=== PATIENT | female | born 1985 | race Caucasian/White ===

== ENCOUNTER 2016-07-14 10:40 | Emergency (ER) | payer MEDICAID ==
[2016-07-14] MEDS ORDERED: ONDANSETRON 4 MG/2 ML VIAL IVP STA (11:08)
[2016-07-14] MEDS ORDERED: SODIUM CHLORIDE 0.9% 1,000 ML IV STA (11:08)
[2016-07-14] MEDS ORDERED: ACETAMINOPHEN TAB 500 MG TAB PO STA (11:10)
[2016-07-14] MEDS ORDERED: IBUPROFEN 600 MG TAB PO STA (11:10)
--- NOTE | 2016-07-14 11:17 | ED ---
General Adult HPI - General Chief complaint: Abdominal Pain Stated complaint: vomiting.fever, back pain Time Seen by Provider: 07/14/16 11:00 Source: patient, RN notes reviewed Mode of arrival: ambulatory Limitations: no limitations - History of Present Illness Initial comments: This is a 31-year-old female who presents to the emergency department complaining of fevers and chills on Thursday night on Thursday she felt pretty good until Thursday night where that she started having fevers and chills again. Patient states she started vomiting on Thursday and continued to vomit today as well as having some diarrhea today. Patient complains of back pain bilaterally but much worse on the right side. Patient states the pain radiates down towards her right flank as well. Patient denies any vaginal bleeding or discharge. Patient denies any pain upon intercourse. Patient denies any dysuria or hematuria or urinary frequency. Patient denies any rashes. Patient denies any cough or difficulty breathing or shortness of breath. Patient denies headache patient denies any numbness weakness. Patient denies any neck stiffness. Patient denies any rashes or lesions. - Related Data Home Medications Medication Instructions Recorded Confirmed ALPRAZolam [Xanax] 0.25 mg PO Q8HR PRN 04/30/14 07/14/16 Levothyroxine Sodium [Synthroid] 75 mcg PO DAILY 04/30/14 07/14/16 Modafinil [Provigil] 400 mg PO DAILY 11/10/14 07/14/16 Loratadine-Pseudoeph 10-240 mg 1 tab PO DAILY PRN 07/14/16 07/14/16 [Claritin-D 24 Hr] Pseudoephedrine 12Hr [Sudafed 12Hr] 120 mg PO Q12H PRN 07/14/16 07/14/16 Previous Rx's Medication Instructions Recorded Ciprofloxacin HCl [Cipro] 500 mg PO Q12HR #20 tablet 07/14/16 Allergies Allergy/AdvReac Type Severity Reaction Status Date / Time Sulfa (Sulfonamide Allergy Rash/Hives Verified 07/14/16 12:27 Antibiotics) Review of Systems ROS Statement: Those systems with pertinent positive or pertinent negative responses have been documented in the HPI. ROS Other: All systems not noted in ROS Statement are negative. Past Medical History Past Medical History: Thyroid Disorder Additional Past Medical History / Comment(s): narcoplepsy History of Any Multi-Drug Resistant Organisms: None Reported Past Surgical History: Adenoidectomy, Tonsillectomy Additional Past Surgical History / Comment(s): stone removal for salivary gland Past Psychological History: Anxiety Smoking Status: Never smoker Past Alcohol Use History: Occasional Past Drug Use History: None Reported General Exam - General Exam Comments Initial Comments: GENERAL: Patient is well-developed and well-nourished. Patient is nontoxic and well- hydrated and is in moderate distress. ENT: Neck is soft and supple. No significant lymphadenopathy is noted. Oropharynx is clear. Moist mucous membranes. Neck has full range of motion without eliciting any pain. EYES: The sclera were anicteric and conjunctiva were pink and moist. Extraocular movements were intact and pupils were equal round and reactive to light. Eyelids were unremarkable. PULMONARY: Unlabored respirations. Good breath sounds bilaterally. No audible rales rhonchi or wheezing was noted. CARDIOVASCULAR: There is a regular rate and rhythm without any murmurs gallops or rubs. ABDOMEN: Mild right flank pain.. No palpable organomegaly was noted. There is no palpable pulsatile mass. SKIN: Skin is clear with no lesions or rashes and otherwise unremarkable. NEUROLOGIC: Patient is alert and oriented x3. Cranial nerves II through XII are grossly intact. Motor and sensory are also intact. Normal speech, volume and content. Symmetrical smile. MUSCULOSKELETAL: Normal extremities with adequate strength and full range of motion. No lower extremity swelling or edema. No calf tenderness. Patient has some right CVA tenderness. LYMPHATICS: No significant lymphadenopathy is noted PSYCHIATRIC: Normal psychiatric evaluation. Normal interpersonal interactions appears functionally intact in deals appropriately with others. No signs of depression. No signs of anxiety. Limitations: no limitations Course Vital Signs 07/14/16 07/14/16 07/14/16 11:02 12:11 13:16 Temperature 103.1 F H 100.5 F H Pulse Rate 129 H 115 H Respiratory 20 16 Rate Blood Pressure 140/66 135/80 O2 Sat by Pulse 100 98 Oximetry 07/14/16 13:20 Temperature Pulse Rate 107 H Respiratory 20 Rate Blood Pressure 106/57 O2 Sat by Pulse 97 Oximetry Medical Decision Making - Medical Decision Making Patient received 2 g of Rocephin emergency department after was determined that the patient had pyelonephritis. - Lab Data Result diagrams: 07/14/16 12:07 07/14/16 12:07 Lab Results 07/14/16 07/14/16 07/14/16 Range/Units 11:06 11:06 12:07 WBC (3.8-10.6) k/uL RBC (3.80-5.40) m/uL Hgb (11.4-16.0) gm/dL Hct (34.0-46.0) % MCV (80.0-100.0) fL MCH (25.0-35.0) pg MCHC (31.0-37.0) g/dL RDW (11.5-15.5) % Plt Count (150-450) k/uL Neutrophils % % Lymphocytes % % Monocytes % % Eosinophils % % Basophils % % Neutrophils # (1.3-7.7) k/uL Lymphocytes # (1.0-4.8) k/uL Monocytes # (0-1.0) k/uL Eosinophils # (0-0.7) k/uL Basophils # (0-0.2) k/uL Sodium (137-145) mmol/L Potassium (3.5-5.1) mmol/L Chloride (98-107) mmol/L Carbon Dioxide (22-30) mmol/L Anion Gap mmol/L BUN (7-17) mg/dL Creatinine (0.52-1.04) mg/dL Est GFR (MDRD) Af Amer (>60 ml/min/1.73 sqM) Est GFR (MDRD) Non-Af (>60 ml/min/1.73 sqM) Glucose (74-99) mg/dL Plasma Lactic Acid Ramos 1.0 (0.7-2.0) mmol/L Calcium (8.4-10.2) mg/dL Total Bilirubin (0.2-1.3) mg/dL AST (14-36) U/L ALT (9-52) U/L Alkaline Phosphatase (38-126) U/L Total Protein (6.3-8.2) g/dL Albumin (3.5-5.0) g/dL Amylase (30-110) U/L Lipase (23-300) U/L Urine Color Yellow Urine Appearance Cloudy H (Clear) Urine pH 8.0 (5.0-8.0) Ur Specific [place] 1.015 (1.001-1.035) Urine Protein 2+ H (Negative) Urine Glucose (UA) Negative (Negative) Urine Ketones 1+ H (Negative) Urine Blood Trace H (Negative) Urine Nitrite Negative (Negative) Urine Bilirubin Negative (Negative) Urine Urobilinogen <2.0 (<2.0) mg/dL Ur Leukocyte Esterase Large H (Negative) Urine RBC 12 H (0-5) /hpf Urine WBC >182 H (0-5) /hpf Ur Squamous Epith Cells 5 H (0-4) /hpf Urine Bacteria Moderate H (None) /hpf Urine Mucus Rare H (None) /hpf Urine HCG, Qual Not Detected (Not Detectd) 07/14/16 07/14/16 Range/Units 12:07 12:07 WBC 16.3 H (3.8-10.6) k/uL RBC 3.99 (3.80-5.40) m/uL Hgb 12.5 (11.4-16.0) gm/dL Hct 37.5 (34.0-46.0) % MCV 94.1 (80.0-100.0) fL MCH 31.3 (25.0-35.0) pg MCHC 33.2 (31.0-37.0) g/dL RDW 12.8 (11.5-15.5) % Plt Count 243 (150-450) k/uL Neutrophils % 90 % Lymphocytes % 4 % Monocytes % 4 % Eosinophils % 0 % Basophils % 0 % Neutrophils # 14.8 H (1.3-7.7) k/uL Lymphocytes # 0.7 L (1.0-4.8) k/uL Monocytes # 0.7 (0-1.0) k/uL Eosinophils # 0.0 (0-0.7) k/uL Basophils # 0.0 (0-0.2) k/uL Sodium 139 (137-145) mmol/L Potassium 3.7 (3.5-5.1) mmol/L Chloride 103 (98-107) mmol/L Carbon Dioxide 25 (22-30) mmol/L Anion Gap 11 mmol/L BUN 8 (7-17) mg/dL Creatinine 0.61 (0.52-1.04) mg/dL Est GFR (MDRD) Af Amer >60 (>60 ml/min/1.73 sqM) Est GFR (MDRD) Non-Af >60 (>60 ml/min/1.73 sqM) Glucose 105 H (74-99) mg/dL Plasma Lactic Acid Ramos (0.7-2.0) mmol/L Calcium 9.1 (8.4-10.2) mg/dL Total Bilirubin 0.6 (0.2-1.3) mg/dL AST 18 (14-36) U/L ALT 24 (9-52) U/L Alkaline Phosphatase 73 (38-126) U/L Total Protein 6.8 (6.3-8.2) g/dL Albumin 3.9 (3.5-5.0) g/dL Amylase 36 (30-110) U/L Lipase 23 (23-300) U/L Urine Color Urine Appearance (Clear) Urine pH (5.0-8.0) Ur Specific [place] (1.001-1.035) Urine Protein (Negative) Urine Glucose (UA) (Negative) Urine Ketones (Negative) Urine Blood (Negative) Urine Nitrite (Negative) Urine Bilirubin (Negative) Urine Urobilinogen (<2.0) mg/dL Ur Leukocyte Esterase (Negative) Urine RBC (0-5) /hpf Urine WBC (0-5) /hpf Ur Squamous Epith Cells (0-4) /hpf Urine Bacteria (None) /hpf Urine Mucus (None) /hpf Urine HCG, Qual (Not Detectd) Disposition Clinical Impression: Pyelonephritis Disposition: HOME SELF-CARE Condition: Good Instructions: Kidney Infection (ED) Prescriptions: Ciprofloxacin HCl [Cipro] 500 mg PO Q12HR #20 tablet Referrals: Pietro Moreno MD [Primary Care Provider] - 1-2 days Time of Disposition: 13:50
[2016-07-14] MEDS ORDERED: IBUPROFEN IV 600 MG in SODIUM CHLORIDE 0.9% 250 ML IV ONE (11:30)
[2016-07-14 12:02] LABS: Appearance,Urine Cloudy (Clear); Bacteria,Urine Moderate /hpf; Bilirubin,Urine Negative (Negative); Glucose,Urine (UA) Negative (Negative); Ketones,Urine 1+ (Negative); Leukocyte Esterase,Urine Large (Negative); Mucus,Urine Rare /hpf; Nitrite,Urine Negative (Negative); Particle Count 5735; Protein,Urine 2+ (Negative); RBC,Urine 12 /hpf (0-5); Specific Gravity,Urine 1.015 (1.001-1.035); Squamous Epithelial Cell,Urine 5 /hpf (0-4); UA Billing (MACRO vs. MICRO) MICRO; Urobilinogen,Urine <2.0 mg/dL (<2.0); WBC,Urine >182 /hpf (0-5)
[2016-07-14] MEDS ORDERED: cefTRIAXone 2,000 MG in SODIUM CHLORIDE 0.9% 100 ML IVPB STA (12:09)
[2016-07-14 12:25] LABS: Basophils % (A) 0 %; CH 31.2; CHCM 33.3; Eosinophils % (A) 0 %; HCT 37.5 % (34.0-46.0); HGB 12.5 gm/dL (11.4-16.0); Luc # (Auto) 0.14; Luc % (Auto) 1; Lymphocytes # (A) 0.7 k/uL (1.0-4.8); Lymphocytes % (A) 4 %; MCH 31.3 pg (25.0-35.0); MCHC 33.2 g/dL (31.0-37.0); MCV 94.1 fL (80.0-100.0); Mean Platelet Volume 7.6; Monocytes # (A) 0.7 k/uL (0-1.0); Monocytes % (A) 4 %; Neutrophils # (A) 14.8 k/uL (1.3-7.7); Neutrophils % (A) 90 %; RBC 3.99 m/uL (3.80-5.40); RDW 12.8 % (11.5-15.5); WBC 16.3 k/uL (3.8-10.6); WBC (Perox) 16.27
[2016-07-14 12:34] LABS: ALT 24 U/L (9-52); AST 18 U/L (14-36); Alkaline Phosphatase 73 U/L (38-126); Amylase 36 U/L (30-110); Anion Gap 11 mmol/L; Blood Urea Nitrogen 8 mg/dL (7-17); Calcium 9.1 mg/dL (8.4-10.2); Carbon Dioxide 25 mmol/L (22-30); Chloride 103 mmol/L (98-107); Glucose 105 mg/dL (74-99); Non-African American GFR(MDRD) >60 (>60 ml/min/1.73 sqM); Potassium 3.7 mmol/L (3.5-5.1); Sodium 139 mmol/L (137-145); Total Bilirubin 0.6 mg/dL (0.2-1.3); Total Protein 6.8 g/dL (6.3-8.2)
[2016-07-14 14:05] VITALS: BP 109/63; PULSE 88; RESP 18; TEMP 98.9
== END 2016-07-14 14:05 | disposition home or self-care (01) ==
LOC: EC 10:40
DX: N12 Tubulo-interstitial nephritis, not specified as acute or chronic (principal); E07.9 Disorder of thyroid, unspecified; Z88.2 Allergy status to sulfonamides; Z79.899 Other long term (current) drug therapy
CPT/HCPCS: 99284; 96365; 96368; 96375; 36415; 80053; 82150; 83605; 83690; 85025; 81001; 81025; 87040; 87491; 87591; 87086; J2405; J0696; J1741; 87077; 87186

== ENCOUNTER 2017-06-28 05:31 | Emergency (ER) | payer MEDICAID ==
[2017-06-28 05:38] VITALS: TEMP 97.3
[2017-06-28] MEDS ORDERED: MORPHINE SULFATE 4 MG/0.8 ML SYRINGE (INJ) IV STA (05:49)
[2017-06-28] MEDS ORDERED: SODIUM CHLORIDE 0.9% 2,000 ML IV STA (05:49)
[2017-06-28] MEDS ORDERED: ONDANSETRON 4 MG/2 ML VIAL IVP STA (05:49)
--- NOTE | 2017-06-28 06:01 | ED ---
General Adult HPI - General Chief complaint: Nausea/Vomiting/Diarrhea Stated complaint: fever,vomiting Time Seen by Provider: 06/28/17 05:44 Source: patient Mode of arrival: ambulatory Limitations: no limitations - History of Present Illness Initial comments: 32 years old female comes in with a fever she said that she checked her fever at home around 1 AM it was 102 she said she has a lower back pain he feels like when she had a kidney infection pretty similar and she been throwing up been nauseous since 1 AM she threw up multiple times, chills fever shakes. Denies any frequency urgency dysuria denies any abdominal pain. Headaches no neck stiffness no chest pain no shortness of breath no cough no sputum production. Review of system is unremarkable otherwise - Related Data Home Medications Medication Instructions Recorded Confirmed ALPRAZolam [Xanax] 0.25 mg PO Q8HR PRN 04/30/14 06/28/17 Levothyroxine Sodium [Synthroid] 75 mcg PO DAILY 04/30/14 06/28/17 Modafinil [Provigil] 400 mg PO DAILY 11/10/14 06/28/17 Loratadine-Pseudoeph 10-240 mg 1 tab PO DAILY PRN 07/14/16 06/28/17 [Claritin-D 24 Hr] Previous Rx's Medication Instructions Recorded Levofloxacin [Levaquin] 500 mg PO DAILY #7 tab 06/28/17 Allergies Allergy/AdvReac Type Severity Reaction Status Date / Time Sulfa (Sulfonamide Allergy Rash/Hives Verified 06/28/17 05:38 Antibiotics) Review of Systems ROS Statement: Those systems with pertinent positive or pertinent negative responses have been documented in the HPI. ROS Other: All systems not noted in ROS Statement are negative. Past Medical History Past Medical History: Thyroid Disorder Additional Past Medical History / Comment(s): narcoplepsy, anxiety History of Any Multi-Drug Resistant Organisms: None Reported Past Surgical History: Adenoidectomy, Tonsillectomy Additional Past Surgical History / Comment(s): stone removal for salivary gland Past Psychological History: Anxiety Smoking Status: Former smoker Past Alcohol Use History: Occasional Past Drug Use History: None Reported General Exam - General Exam Comments Initial Comments: General: The patient is awake and alert, in mild distress Skin: Skin is warm and dry and no rashes or lesions are noted. Eye: Pupils are equal, round and reactive to light, extra-ocular movements are intact; there is normal conjunctiva bilaterally. Ears, nose, mouth and throat: There are moist mucous membranes and no oral lesions. Neck: The neck is supple, there is no tenderness or JVD. Cardiovascular: There is a regular rate and rhythm. No murmur, rub or gallop is appreciated. Respiratory: To auscultation bilateral, no wheezing no rhonchi no distress respiratory nguyen noticed Gastrointestinal: Soft, non-distended, non-tender abdomen without masses or organomegaly noted. There is no rebound or guarding present. Bowel sounds are unremarkable. Back: There is tenderness over the lower back both sides and somewhat in the middle back as well Musculoskeletal: Normal ROM, no tenderness, There is no pedal edema. There is no calf tenderness or swelling. No cords were appreciated. Neurological: CN II-XII intact, Cranial nerves III through XII are intact. There are no obvious motor or sensory deficits. Coordination appears grossly intact. Speech is normal. Psychiatric: Cooperative, appropriate, no suicidal or homicidal ideation Limitations: no limitations Course Vital Signs 06/28/17 06/28/17 05:33 06:52 Temperature 97.3 F L Pulse Rate 120 H 101 H Respiratory 20 16 Rate Blood Pressure 147/77 133/73 O2 Sat by Pulse 98 100 Oximetry Patient is reassessed, CBC is unremarkable compress metabolic panel looks good QTc is of abdomen and chest rule out any air-fluid levels, 18, emesis is probably secondary to viral infection there is a possibility there is already Tylenol she got Rocephin in the ER and she be gone home on Levaquin 500 milligrams by mouth daily for 7 days , and x-ray noticed intrauterine device as well, chest x-ray ruled out any pneumonia no free air under the diaphragm noticed all these findings were discussed with the patient and she was advised to follow-up with her family doctor she is agreeable to Medical Decision Making - Lab Data Result diagrams: 06/28/17 05:57 06/28/17 05:57 Lab Results 06/28/17 06/28/17 06/28/17 Range/Units 05:57 05:57 05:57 WBC 8.6 (3.8-10.6) k/uL RBC 4.64 (3.80-5.40) m/uL Hgb 14.3 (11.4-16.0) gm/dL Hct 41.3 (34.0-46.0) % MCV 89.1 (80.0-100.0) fL MCH 30.8 (25.0-35.0) pg MCHC 34.6 (31.0-37.0) g/dL RDW 12.7 (11.5-15.5) % Plt Count 284 (150-450) k/uL Neutrophils % 75 % Lymphocytes % 18 % Monocytes % 4 % Eosinophils % 1 % Basophils % 0 % Neutrophils # 6.5 (1.3-7.7) k/uL Lymphocytes # 1.6 (1.0-4.8) k/uL Monocytes # 0.3 (0-1.0) k/uL Eosinophils # 0.1 (0-0.7) k/uL Basophils # 0.0 (0-0.2) k/uL Sodium 140 (137-145) mmol/L Potassium 4.3 (3.5-5.1) mmol/L Chloride 104 (98-107) mmol/L Carbon Dioxide 21 L (22-30) mmol/L Anion Gap 15 mmol/L BUN 11 (7-17) mg/dL Creatinine 0.59 (0.52-1.04) mg/dL Est GFR (CKD-EPI)AfAm >90 (>60 ml/min/1.73 sqM) Est GFR (CKD-EPI)NonAf >90 (>60 ml/min/1.73 sqM) Glucose 117 H (74-99) mg/dL Calcium 9.4 (8.4-10.2) mg/dL Total Bilirubin 0.6 (0.2-1.3) mg/dL AST 25 (14-36) U/L ALT 38 (9-52) U/L Alkaline Phosphatase 50 (38-126) U/L Total Protein 7.2 (6.3-8.2) g/dL Albumin 4.6 (3.5-5.0) g/dL Amylase 44 (30-110) U/L Lipase 54 (23-300) U/L Urine Color Yellow Urine Appearance Cloudy H (Clear) Urine pH 6.5 (5.0-8.0) Ur Specific [place] 1.023 (1.001-1.035) Urine Protein Trace H (Negative) Urine Glucose (UA) Negative (Negative) Urine Ketones Negative (Negative) Urine Blood Trace H (Negative) Urine Nitrite Negative (Negative) Urine Bilirubin Negative (Negative) Urine Urobilinogen 4.0 (<2.0) mg/dL Ur Leukocyte Esterase Large H (Negative) Urine RBC 2 (0-5) /hpf Urine WBC 5 (0-5) /hpf Ur Squamous Epith Cells 9 H (0-4) /hpf Urine Mucus Occasional H (None) /hpf Disposition Clinical Impression: Fever, UTI (urinary tract infection), Pyelonephritis Disposition: HOME SELF-CARE Condition: Good Instructions: Acute Nausea and Vomiting (ED), Urinary Tract Infection in Children (ED) Prescriptions: Levofloxacin [Levaquin] 500 mg PO DAILY #7 tab Is patient prescribed a controlled substance at d/c from ED?: No If prescribed controlled substance>3 days was MAPS reviewed?: No When asked, does pt state using other controlled substances?: No Referrals: Pietro Moreno MD [Primary Care Provider] - 1-2 days
[2017-06-28 06:19] LABS: Basophils % (A) 0 %; Eosinophils # (A) 0.1 k/uL (0-0.7); Eosinophils % (A) 1 %; HCT 41.3 % (34.0-46.0); HGB 14.3 gm/dL (11.4-16.0); Lymphocytes # (A) 1.6 k/uL (1.0-4.8); Lymphocytes % (A) 18 %; MCH 30.8 pg (25.0-35.0); MCHC 34.6 g/dL (31.0-37.0); MCV 89.1 fL (80.0-100.0); Mean Platelet Volume 7.5; Monocytes # (A) 0.3 k/uL (0-1.0); Monocytes % (A) 4 %; Neutrophils # (A) 6.5 k/uL (1.3-7.7); Neutrophils % (A) 75 %; Platelet Count 284 k/uL (150-450); RBC 4.64 m/uL (3.80-5.40); RDW 12.7 % (11.5-15.5); WBC 8.6 k/uL (3.8-10.6)
[2017-06-28 06:22] LABS: Appearance,Urine Cloudy (Clear); Bilirubin,Urine Negative (Negative); Blood,Urine Trace (Negative); Color,Urine Yellow; Glucose,Urine (UA) Negative (Negative); Ketones,Urine Negative (Negative); Leukocyte Esterase,Urine Large (Negative); Mucus,Urine Occasional /hpf; Nitrite,Urine Negative (Negative); PH, Urine 6.5 (5.0-8.0); Protein,Urine Trace (Negative); RBC,Urine 2 /hpf (0-5); Specific Gravity,Urine 1.023 (1.001-1.035); Squamous Epithelial Cell,Urine 9 /hpf (0-4); WBC,Urine 5 /hpf (0-5)
[2017-06-28 06:27] LABS: ALT 38 U/L (9-52); AST 25 U/L (14-36); Albumin 4.6 g/dL (3.5-5.0); Alkaline Phosphatase 50 U/L (38-126); Amylase 44 U/L (30-110); Anion Gap 15 mmol/L; Blood Urea Nitrogen 11 mg/dL (7-17); Calcium 9.4 mg/dL (8.4-10.2); Carbon Dioxide 21 mmol/L (22-30); Chloride 104 mmol/L (98-107); Glucose 117 mg/dL (74-99); Lipase 54 U/L (23-300); Potassium 4.3 mmol/L (3.5-5.1); Sodium 140 mmol/L (137-145); Total Bilirubin 0.6 mg/dL (0.2-1.3); Total Protein 7.2 g/dL (6.3-8.2)
[2017-06-28] MEDS ORDERED: cefTRIAXone 2,000 MG in SODIUM CHLORIDE 0.9% 100 ML IVPB STA (06:28)
[2017-06-28] MEDS ORDERED: cefTRIAXone IN SWFI 2,000 MG/20 ML SYRINGE IVP STA (06:30)
--- NOTE | 2017-06-28 07:17 | XR ---
EXAM: XR Abdomen 2 Views With XR Chest CLINICAL HISTORY: ITS.REASON XR Reason: Pain TECHNIQUE: Frontal view of the chest, frontal view of the abdomen/pelvis and upright or decubitus view of the abdomen. COMPARISON: No relevant prior studies available. FINDINGS: Lungs: No dense consolidation. Pleural space: No effusion. No pneumothorax. Heart: The heart size is within normal limits. Mediastinal contours within normal limits. Mediastinum: Unremarkable. Intraperitoneal space: No abnormal calcification in the upper abdomen. No free air seen on the upright view. Gastrointestinal tract: Nonspecific bowel gas pattern. Air seen throughout the large bowel. Mild retained stool. Bones/joints: Unremarkable. Soft tissues: IUD present projecting over the right pelvis. IMPRESSION: No acute pulmonary disease. Nonspecific bowel gas pattern with mild retained stool. No radiopaque renal calculus IUD present. No free air
[2017-06-28 07:44] VITALS: BP 135/70; PULSE 109; RESP 18
== END 2017-06-28 07:39 | disposition home or self-care (01) ==
LOC: EC 05:31
DX: N12 Tubulo-interstitial nephritis, not specified as acute or chronic (principal); N39.0 Urinary tract infection, site not specified; E07.9 Disorder of thyroid, unspecified; Z87.891 Personal history of nicotine dependence; Z79.899 Other long term (current) drug therapy; Z88.2 Allergy status to sulfonamides; Z53.8 Procedure and treatment not carried out for other reasons
CPT/HCPCS: 99284; 96374; 96375 ×2; 96361 ×2; 36415; 80053; 82150; 83690; 85025; 81001; 87086; 74022; J2405; J0696; J2270

== ENCOUNTER 2017-06-29 18:29 | Inpatient (IN) | payer MEDICAID ==
[2017-06-29] MEDS ORDERED: METOCLOPRAMIDE 5 MG/ML 2 ML VIAL IVP STA (20:02)
[2017-06-29] MEDS ORDERED: SODIUM CHLORIDE 0.9% 1,000 ML IV STA ×2 (20:02→21:03)
[2017-06-29] MEDS ORDERED: diphenhydrAMINE 50 MG/ML 1 ML VIAL IVP STA (20:05)
--- NOTE | 2017-06-29 20:09 | ED ---
General Adult HPI - General Chief complaint: Nausea/Vomiting/Diarrhea Stated complaint: Fever/Vomiting Time Seen by Provider: 06/29/17 20:02 Source: patient, RN notes reviewed Mode of arrival: wheelchair Limitations: no limitations - History of Present Illness Initial comments: Patient 32-year-old female presenting to the emergency room today with a chief complaint of nausea vomiting over the last 3 days. She does admit that she was seen last night for the same complaint. She denies any other complaints or associated symptoms at this time. Patient denies any recent fever, chills, shortness of breath, chest pain, back pain, abdominal pain, dysuria or hematuria , constipation or diarrhea, headaches or visual changes, or any other complaints. - Related Data Home Medications Medication Instructions Recorded Confirmed ALPRAZolam [Xanax] 0.25 mg PO Q8HR PRN 04/30/14 06/29/17 Levothyroxine Sodium [Synthroid] 75 mcg PO DAILY 04/30/14 06/29/17 Modafinil [Provigil] 400 mg PO DAILY 11/10/14 06/29/17 Allergies Allergy/AdvReac Type Severity Reaction Status Date / Time Sulfa (Sulfonamide Allergy Rash/Hives Verified 06/29/17 20:17 Antibiotics) Review of Systems ROS Statement: Those systems with pertinent positive or pertinent negative responses have been documented in the HPI. ROS Other: All systems not noted in ROS Statement are negative. Past Medical History Past Medical History: Thyroid Disorder Additional Past Medical History / Comment(s): narcoplepsy, anxiety History of Any Multi-Drug Resistant Organisms: None Reported Past Surgical History: Adenoidectomy, Tonsillectomy Additional Past Surgical History / Comment(s): stone removal for salivary gland Past Psychological History: Anxiety Smoking Status: Former smoker Past Alcohol Use History: Occasional Past Drug Use History: None Reported General Exam - General Exam Comments Initial Comments: General: The patient is awake and alert, in no distress, and does not appear acutely ill. Eye: Pupils are equal, round and reactive to light, extra-ocular movements are intact. No nystagmus. There is normal conjunctiva bilaterally. No signs of icterus. Ears, nose, mouth and throat: There are moist mucous membranes and no oral lesions. Neck: The neck is supple, there is no tenderness or JVD. Cardiovascular: There is a regular rate and rhythm. No murmur, rub or gallop is appreciated. Respiratory: Lungs are clear to auscultation, respirations are non-labored, breath sounds are equal. No wheezes, stridor, rales, or rhonchi. Gastrointestinal: Soft nontender. No specific tenderness. No rebound tenderness or guarding. Tenderness right CVA. Musculoskeletal: Normal ROM, no tenderness. Strength 5/5. Sensation intact. Pulses equal bilaterally 2+. Neurological: A&O x 3. CN II-XII intact, There are no obvious motor or sensory deficits. Coordination appears grossly intact. Speech is normal. Skin: Skin is warm and dry and no rashes or lesions are noted. Psychiatric: Cooperative, appropriate mood & affect, normal judgment. Limitations: no limitations Course Vital Signs 06/29/17 18:40 Temperature 99.1 F Pulse Rate 117 H Respiratory 18 Rate Blood Pressure 140/85 O2 Sat by Pulse 100 Oximetry Medical Decision Making - Medical Decision Making Patient reexamined at this time shows no signs of distress. Patient still admits to nausea vomiting. Patient abdomen is soft on palpation. Mild tenderness in the right flank. Patient's labs from yesterday were reviewed urine culture is negative. Patient was given dose Rocephin started on ciprofloxacin yesterday. Patient returned due to increased symptoms. Patient did have fever at triage 103.2F. Patient given IV Tylenol doesn't that she does admit feel better. Patient given total of 2 L of fluids. Lactic acid mildly elevated at 2.2. June labs reviewed and are unremarkable. Chest x-rays negative. CT of the abdomen pelvis shows no acute findings. Results were discussed with patient. Instead she states still feeling nausea and worried about vomiting. Case discussed with attending physician Dr. Ayala. Patient will be admitted to hospital for intractable nausea vomiting continued on IV fluids and nausea medication. - Lab Data Result diagrams: 06/29/17 20:26 06/29/17 20:26 Lab Results 06/29/17 06/29/17 06/29/17 Range/Units 20:26 20:26 20:26 WBC (3.8-10.6) k/uL RBC (3.80-5.40) m/uL Hgb (11.4-16.0) gm/dL Hct (34.0-46.0) % MCV (80.0-100.0) fL MCH (25.0-35.0) pg MCHC (31.0-37.0) g/dL RDW (11.5-15.5) % Plt Count (150-450) k/uL Neutrophils % % Lymphocytes % % Monocytes % % Eosinophils % % Basophils % % Neutrophils # (1.3-7.7) k/uL Lymphocytes # (1.0-4.8) k/uL Monocytes # (0-1.0) k/uL Eosinophils # (0-0.7) k/uL Basophils # (0-0.2) k/uL Sodium 140 (137-145) mmol/L Potassium 3.5 (3.5-5.1) mmol/L Chloride 103 (98-107) mmol/L Carbon Dioxide 23 (22-30) mmol/L Anion Gap 14 mmol/L BUN 9 (7-17) mg/dL Creatinine 0.60 (0.52-1.04) mg/dL Est GFR (CKD-EPI)AfAm >90 (>60 ml/min/1.73 sqM) Est GFR (CKD-EPI)NonAf >90 (>60 ml/min/1.73 sqM) Glucose 121 H (74-99) mg/dL Plasma Lactic Acid Ramos 2.2 H* (0.7-2.0) mmol/L Calcium 9.5 (8.4-10.2) mg/dL Total Bilirubin 0.4 (0.2-1.3) mg/dL AST 21 (14-36) U/L ALT 19 (9-52) U/L Alkaline Phosphatase 39 (38-126) U/L Total Protein 6.9 (6.3-8.2) g/dL Albumin 4.4 (3.5-5.0) g/dL Amylase 48 (30-110) U/L Lipase 68 (23-300) U/L Urine Color Urine Appearance (Clear) Urine pH (5.0-8.0) Ur Specific [place] (1.001-1.035) Urine Protein (Negative) Urine Glucose (UA) (Negative) Urine Ketones (Negative) Urine Blood (Negative) Urine Nitrite (Negative) Urine Bilirubin (Negative) Urine Urobilinogen (<2.0) mg/dL Ur Leukocyte Esterase (Negative) Urine HCG, Qual Not Detected (Not Detectd) 06/29/17 06/29/17 Range/Units 20:26 20:26 WBC 9.9 (3.8-10.6) k/uL RBC 4.42 (3.80-5.40) m/uL Hgb 13.4 (11.4-16.0) gm/dL Hct 39.6 (34.0-46.0) % MCV 89.6 (80.0-100.0) fL MCH 30.2 (25.0-35.0) pg MCHC 33.7 (31.0-37.0) g/dL RDW 12.7 (11.5-15.5) % Plt Count 255 (150-450) k/uL Neutrophils % 76 % Lymphocytes % 17 % Monocytes % 5 % Eosinophils % 0 % Basophils % 0 % Neutrophils # 7.6 (1.3-7.7) k/uL Lymphocytes # 1.7 (1.0-4.8) k/uL Monocytes # 0.5 (0-1.0) k/uL Eosinophils # 0.0 (0-0.7) k/uL Basophils # 0.0 (0-0.2) k/uL Sodium (137-145) mmol/L Potassium (3.5-5.1) mmol/L Chloride (98-107) mmol/L Carbon Dioxide (22-30) mmol/L Anion Gap mmol/L BUN (7-17) mg/dL Creatinine (0.52-1.04) mg/dL Est GFR (CKD-EPI)AfAm (>60 ml/min/1.73 sqM) Est GFR (CKD-EPI)NonAf (>60 ml/min/1.73 sqM) Glucose (74-99) mg/dL Plasma Lactic Acid Ramos (0.7-2.0) mmol/L Calcium (8.4-10.2) mg/dL Total Bilirubin (0.2-1.3) mg/dL AST (14-36) U/L ALT (9-52) U/L Alkaline Phosphatase (38-126) U/L Total Protein (6.3-8.2) g/dL Albumin (3.5-5.0) g/dL Amylase (30-110) U/L Lipase (23-300) U/L Urine Color Yellow Urine Appearance Clear (Clear) Urine pH 5.5 (5.0-8.0) Ur Specific [place] 1.028 (1.001-1.035) Urine Protein Trace H (Negative) Urine Glucose (UA) Negative (Negative) Urine Ketones Trace H (Negative) Urine Blood Negative (Negative) Urine Nitrite Negative (Negative) Urine Bilirubin Negative (Negative) Urine Urobilinogen <2.0 (<2.0) mg/dL Ur Leukocyte Esterase Negative (Negative) Urine HCG, Qual (Not Detectd) Disposition Clinical Impression: Intractable nausea and vomiting, Lactic acidosis Disposition: ADMITTED IP TO THIS HOSP Condition: Good Is patient prescribed a controlled substance at d/c from ED?: No Referrals: Pietro Moreno MD [Primary Care Provider] - 1-2 days Time of Disposition: 22:29
[2017-06-29] MEDS ORDERED: RX INFO: IV CONTRAST WAS GIVEN 1 EACH MISC MISCELLANE PRN (20:11)
[2017-06-29] MEDS ORDERED: ACETAMINOPHEN IV (For NPO) 1,000 MG in EMPTY BAG 1 BAG IVPB STA (20:11)
[2017-06-29 20:42] LABS: Basophils % (A) 0 %; Eosinophils % (A) 0 %; HCT 39.6 % (34.0-46.0); HGB 13.4 gm/dL (11.4-16.0); Lymphocytes # (A) 1.7 k/uL (1.0-4.8); Lymphocytes % (A) 17 %; MCH 30.2 pg (25.0-35.0); MCHC 33.7 g/dL (31.0-37.0); MCV 89.6 fL (80.0-100.0); Mean Platelet Volume 7.4; Monocytes # (A) 0.5 k/uL (0-1.0); Monocytes % (A) 5 %; Neutrophils # (A) 7.6 k/uL (1.3-7.7); Neutrophils % (A) 76 %; Platelet Count 255 k/uL (150-450); RBC 4.42 m/uL (3.80-5.40); RDW 12.7 % (11.5-15.5); WBC 9.9 k/uL (3.8-10.6)
[2017-06-29 20:43] LABS: Appearance,Urine Clear (Clear); Bilirubin,Urine Negative (Negative); Blood,Urine Negative (Negative); Color,Urine Yellow; Glucose,Urine (UA) Negative (Negative); Ketones,Urine Trace (Negative); Leukocyte Esterase,Urine Negative (Negative); Nitrite,Urine Negative (Negative); PH, Urine 5.5 (5.0-8.0); Protein,Urine Trace (Negative); Specific Gravity,Urine 1.028 (1.001-1.035); Urobilinogen,Urine <2.0 mg/dL (<2.0)
[2017-06-29 20:52] LABS: ALT 19 U/L (9-52); AST 21 U/L (14-36); Albumin 4.4 g/dL (3.5-5.0); Alkaline Phosphatase 39 U/L (38-126); Amylase 48 U/L (30-110); Anion Gap 14 mmol/L; Blood Urea Nitrogen 9 mg/dL (7-17); Calcium 9.5 mg/dL (8.4-10.2); Carbon Dioxide 23 mmol/L (22-30); Chloride 103 mmol/L (98-107); Glucose 121 mg/dL (74-99); Lipase 68 U/L (23-300); Potassium 3.5 mmol/L (3.5-5.1); Sodium 140 mmol/L (137-145); Total Bilirubin 0.4 mg/dL (0.2-1.3); Total Protein 6.9 g/dL (6.3-8.2)
--- NOTE | 2017-06-29 21:20 | XR ---
EXAMINATION TYPE: XR chest 2V DATE OF EXAM: 06/29/2017 COMPARISON: Chest x-ray November 10, 2014. HISTORY: Vomiting and fever. TECHNIQUE: Frontal and lateral views of the chest are obtained. FINDINGS: There is no focal air space opacity, pleural effusion, or pneumothorax seen. The cardiac silhouette size is within normal limits. The osseous structures are intact. IMPRESSION: No acute cardiopulmonary process. No significant change from prior.
--- NOTE | 2017-06-29 21:43 | CT ---
EXAMINATION TYPE: CT abdomen pelvis w con DATE OF EXAM: 06/29/2017 HISTORY: Fever and vomiting x4 days. CT DLP: 981.7mGycm Automated Exposure Control for Dose Reduction was Utilized. CONTRAST: CT scan of the abdomen and pelvis is performed without oral but with IV Contrast, patient injected wi th 100ml mL of Isovue 300. COMPARISON: None. FINDINGS: LUNG BASES: Dependent atelectasis in both bases is present. LIVER/GB: No significant abnormality is appreciated. PANCREAS: No significant abnormality is seen. SPLEEN: There is subcentimeter splenule along the anterior-inferior aspect of the spleen. ADRENALS: No significant abnormality is seen. KIDNEYS: No significant abnormality is seen. BOWEL: Normal-appearing appendix is seen from cecum. There is no suspicious small or large bowel dila tation. UTERUS/ADNEXA: Anteverted uterus is seen. Central metallic IUD is noted. Both ovaries are present, le ft slightly larger than right. Within the left ovary there is 2.1 cm rim hyperdense lesion could refl ect corpus luteal cyst from recent ovulation. LYMPH NODES: No greater than 1cm abdominal or pelvic lymph nodes are appreciated. OSSEOUS STRUCTURES: Sagittal images do not include entire lumbar spine to best evaluate pars defects. Mild facet arthropathy is present lower lumbar levels. OTHER: No significant additional abnormality is seen. IMPRESSION: No bowel obstruction is seen. No significant acute finding is seen to account for patient 's clinical symptoms.
[2017-06-29] MEDS ORDERED: cefTRIAXone IN SWFI 1,000 MG/10 ML SYRINGE IVP STA (22:24)
[2017-06-29] MEDS ORDERED: IBUPROFEN 400 MG TAB PO PRN (22:38)
[2017-06-29] MEDS ORDERED: NALOXONE 0.4 MG/ML 1 ML VIAL IV PRN (22:38)
[2017-06-29] MEDS ORDERED: ALPRAZolam 0.25 MG TAB PO PRN (22:41)
[2017-06-30] MEDS: ACETAMINOPHEN IV (For NPO) 1,000 MG in EMPTY BAG 1 BAG IVPB SCH ×4 (03:00→23:17)
[2017-06-30] MEDS: ONDANSETRON 4 MG/2 ML VIAL IVP PRN ×3 (03:32→17:59)
[2017-06-30] MEDS: 0.9% NACL WITH KCL 20 MEQ/L 1,000 ML IV SCH ×2 (05:51→10:00)
[2017-06-30] MEDS: LEVOTHYROXINE 75 MCG TAB PO SCH (06:46)
--- NOTE | 2017-06-30 07:17 | P.HPIM ---
History of Present Illness H&P Date: 06/30/17 Chief Complaint: Dysuria with nausea. This is a 32-year-old white female with known history of hypothyroidism who has been struggling with intractable nausea and vomiting for the last several days. 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 Poor by mouth intake was noted for the last several days. Question element of mild dehydration. The patient started having significant fever and chills and was now reevaluated and then appropriately readmitted for presumed UTI/polynephritis and possible sepsis. Review of Systems Constitutional: Denies chills, Denies fever Eyes: denies blurred vision, denies pain Ears, nose, mouth and throat: Denies headache, Denies sore throat Cardiovascular: Denies chest pain, Denies shortness of breath Respiratory: Denies cough Gastrointestinal: Denies abdominal pain, Denies diarrhea, Denies nausea, Denies vomiting Genitourinary: Reports as per HPI Musculoskeletal: Denies myalgias Past Medical History Past Medical History: Thyroid Disorder Additional Past Medical History / Comment(s): narcoplepsy, anxiety History of Any Multi-Drug Resistant Organisms: None Reported Past Surgical History: Adenoidectomy, Tonsillectomy Additional Past Surgical History / Comment(s): stone removal for salivary gland Past Anesthesia/Blood Transfusion Reactions: No Reported Reaction Additional Past Anesthesia/Blood Transfusion Reaction / Comment(s): never had blood transfusion Past Psychological History: Anxiety Smoking Status: Former smoker Past Alcohol Use History: Occasional Past Drug Use History: None Reported - Past Family History Father Family Medical History: Diabetes Mellitus, Hyperlipidemia, Hypertension Additional Family Medical History / Comment(s): bipass surgery Mother Family Medical History: Hyperlipidemia, Hypertension Medications and Allergies Home Medications Medication Instructions Recorded Confirmed Type ALPRAZolam [Xanax] 0.25 mg PO Q8HR PRN 04/30/14 06/29/17 History Levothyroxine Sodium [Synthroid] 75 mcg PO DAILY 04/30/14 06/29/17 History Modafinil [Provigil] 400 mg PO DAILY 11/10/14 06/29/17 History Allergies Allergy/AdvReac Type Severity Reaction Status Date / Time Sulfa (Sulfonamide Allergy Rash/Hives Verified 06/29/17 20:17 Antibiotics) Physical Exam Vitals: Vital Signs Temp Pulse Pulse Resp BP BP Pulse Ox 06/29/17 23:20 99.0 F 98 18 123/61 100 06/29/17 22:42 98.4 F 83 15 123/58 100 06/29/17 18:40 99.1 F 117 H 18 140/85 100 Intake and Output 06/29/17 06/30/17 06/30/17 22:59 06:59 14:59 Other: Weight 72.575 kg 76.5 kg - Constitutional General appearance: no acute distress - EENT Eyes: EOMI - Neck Neck: no lymphadenopathy - Respiratory Respiratory: bilateral: CTA - Cardiovascular Rhythm: regular Heart sounds: normal: S1, S2 Abnormal Heart Sounds: no S3 Gallop - Gastrointestinal General gastrointestinal: soft, no tenderness - Integumentary Integumentary: normal Results CBC & Chem 7: 06/29/17 20:26 06/29/17 20:26 Labs: Abnormal Lab Results - Last 24 Hours (Table) 06/29/17 06/29/17 06/29/17 Range/Units 20:26 20:26 20:26 Glucose 121 H (74-99) mg/dL Plasma Lactic Acid Ramos 2.2 H* (0.7-2.0) mmol/L Urine Protein Trace H (Negative) Urine Ketones Trace H (Negative) Thrombosis Risk Factor Assmnt - Choose All That Apply Any of the Below Risk Factors Present?: Yes Each Factor Represents 1 point: Obesity (BMI >25) Other Risk Factors: No Other congenital or acquired thrombophilia - If yes, enter type in comment: No Thrombosis Risk Factor Assessment Total Risk Factor Score: 1 Thrombosis Risk Factor Assessment Level: Low Risk Assessment and Plan Plan: UTI with possible pyelonephritis. Urine culture is pending. Blood cultures pending. Continue Rocephin. Continue IV hydration. advance diet. Check CBC and CMP in a.m. Anticipate discharge in next 24-48 hours.
[2017-06-30 08:28] LABS: Basophils % (A) 0 %; Eosinophils # (A) 0.1 k/uL (0-0.7); Eosinophils % (A) 2 %; HCT 38.8 % (34.0-46.0); HGB 12.6 gm/dL (11.4-16.0); Lymphocytes # (A) 2.6 k/uL (1.0-4.8); Lymphocytes % (A) 35 %; MCH 29.7 pg (25.0-35.0); MCHC 32.4 g/dL (31.0-37.0); MCV 91.9 fL (80.0-100.0); Mean Platelet Volume 7.8; Monocytes # (A) 0.5 k/uL (0-1.0); Monocytes % (A) 6 %; Neutrophils # (A) 4.1 k/uL (1.3-7.7); Neutrophils % (A) 55 %; Platelet Count 207 k/uL (150-450); RBC 4.22 m/uL (3.80-5.40); RDW 12.7 % (11.5-15.5); WBC 7.5 k/uL (3.8-10.6)
[2017-06-30 08:55] LABS: ALT 21 U/L (9-52); AST 26 U/L (14-36); Albumin 3.7 g/dL (3.5-5.0); Alkaline Phosphatase 28 U/L (38-126); Anion Gap 14 mmol/L; Blood Urea Nitrogen 6 mg/dL (7-17); Carbon Dioxide 19 mmol/L (22-30); Chloride 108 mmol/L (98-107); Glucose 78 mg/dL (74-99); Sodium 141 mmol/L (137-145); Total Bilirubin 0.7 mg/dL (0.2-1.3); Total Protein 6.1 g/dL (6.3-8.2)
[2017-06-30 08:58] LABS: Potassium 4.4 mmol/L (3.5-5.1)
[2017-06-30] MEDS ORDERED: cefTRIAXone IN SWFI 1,000 MG/10 ML SYRINGE IVP SCH (09:00)
[2017-06-30] MEDS: MODAFINIL 200 MG TAB PO SCH ×2 (10:02→10:13)
[2017-06-30] MEDS: ACETAMINOPHEN TAB 325 MG TAB PO PRN ×2 (10:12→14:17)
[2017-06-30] MEDS: SODIUM CHLORIDE 0.9% 1,000 ML IV SCH ×3 (10:14→20:30)
[2017-06-30] MEDS: PROMETHAZINE INJ 25 MG in SODIUM CHLORIDE 0.9% 50 ML IVPB PRN ×2 (16:07→22:36)
[2017-06-30] MEDS ORDERED: IBUPROFEN 600 MG TAB PO PRN (18:49)
[2017-07-01] MEDS: ONDANSETRON 4 MG/2 ML VIAL IVP PRN ×5 (00:38→23:49)
[2017-07-01] MEDS: LEVOTHYROXINE 75 MCG TAB PO SCH (06:49)
[2017-07-01] MEDS: SODIUM CHLORIDE 0.9% 1,000 ML IV SCH (07:18)
--- NOTE | 2017-07-01 07:49 | P.PN ---
Subjective Progress Note Date: 07/01/17 Principal diagnosis: Fever spikes. Continuing care. This is a history and physical on a 32-year-old white female who is. She still feels flank pain. She spiking fevers. The culture so far is negative. She was on Rocephin, I will switch this to Unasyn for now. Question need for infectious disease consultation if she does not improve with this change. Otherwise significant nausea is noted. She has not done well with Phenergan but does well with Zofran. We will increase the frequency of this. Ofrimev will also be continued today. Objective - Vital Signs Vital signs: Vital Signs Temp 100 F H 07/01/17 06:50 Pulse 101 H 07/01/17 06:50 Resp 16 07/01/17 06:50 BP 124/78 07/01/17 06:50 Pulse Ox 99 07/01/17 06:50 Intake & Output 06/30/17 07/01/17 07/01/17 18:59 06:59 18:59 Intake Total 800 Balance 800 Intake: Intake, IV Titration 800 Amount Sodium Chloride 0.9% 1, 800 000 ml @ 100 mls/hr IV . Q10H JOSHUA Rx#:[id number] Other: Voiding Method Toilet Toilet # Voids 1 - Constitutional General appearance: Present: average body habitus - EENT Eyes: Absent: abnormal pupil - Respiratory Respiratory: bilateral: CTA - Cardiovascular Rhythm: regular Heart sounds: normal: S1, S2 Abnormal Heart Sounds: Absent: S3 Gallop - Gastrointestinal General gastrointestinal: Present: soft. Absent: splenomegaly, tenderness - Integumentary Integumentary: Absent: cellulitis - Neurologic Neurologic: Present: CNII-XII intact - Musculoskeletal Musculoskeletal: Present: gait normal - Labs CBC & Chem 7: 06/30/17 07:50 06/30/17 07:50 Labs: Abnormal Lab Results - Last 24 Hours (Table) 06/30/17 Range/Units 07:50 Chloride 108 H (98-107) mmol/L Carbon Dioxide 19 L (22-30) mmol/L BUN 6 L (7-17) mg/dL Creatinine 0.49 L (0.52-1.04) mg/dL Calcium 8.0 L (8.4-10.2) mg/dL Alkaline Phosphatase 28 L (38-126) U/L Total Protein 6.1 L (6.3-8.2) g/dL Microbiology - Last 24 Hours (Table) 06/29/17 20:26 Blood Culture - Preliminary Blood No Growth after 24 hours Assessment and Plan (1) Intractable nausea and vomiting Current Visit: Yes Status: Acute Code(s): R11.2 - NAUSEA WITH VOMITING, UNSPECIFIED SNOMED Code(s): 916737068 (2) Anxiety Current Visit: No Status: Acute Code(s): F41.9 - ANXIETY DISORDER, UNSPECIFIED SNOMED Code(s): 12150472 (3) Pyelonephritis Current Visit: No Status: Acute Code(s): N12 - TUBULO-INTERSTITIAL NEPHRITIS , NOT SPCF ACUTE OR CHRONIC SNOMED Code(s): 80555534 Plan: Continue current regimen of treatment except for discontinuing Rocephin. Unasyn will be started. Continue IV fluid hydration. Advance diet as tolerated. Continue Zofran for nausea. Check CBC and CMP in a.m. per Dr. Perea's group will be covering for the weekend starting . See orders otherwise.
[2017-07-01] MEDS: ACETAMINOPHEN IV (For NPO) 1,000 MG in EMPTY BAG 1 BAG IVPB SCH ×5 (08:09→23:50)
[2017-07-01] MEDS: AMPICILLIN-SULBACTAM 3 GM in SODIUM CHLORIDE 0.9% 100 ML IVPB SCH ×3 (08:10→18:05)
[2017-07-01 11:23] LABS: HCT 36.6 % (34.0-46.0); HGB 12.4 gm/dL (11.4-16.0); MCH 30.4 pg (25.0-35.0); MCHC 33.8 g/dL (31.0-37.0); MCV 89.9 fL (80.0-100.0); Mean Platelet Volume 7.5; Platelet Count 240 k/uL (150-450); RBC 4.07 m/uL (3.80-5.40); RDW 12.7 % (11.5-15.5); WBC 6.6 k/uL (3.8-10.6)
[2017-07-01 11:38] LABS: ALT 24 U/L (9-52); AST 17 U/L (14-36); Alkaline Phosphatase 38 U/L (38-126); Anion Gap 14 mmol/L; Blood Urea Nitrogen 5 mg/dL (7-17); Calcium 8.5 mg/dL (8.4-10.2); Carbon Dioxide 23 mmol/L (22-30); Chloride 104 mmol/L (98-107); Glucose 114 mg/dL (74-99); Potassium 3.5 mmol/L (3.5-5.1); Sodium 141 mmol/L (137-145); Total Bilirubin 0.5 mg/dL (0.2-1.3); Total Protein 6.1 g/dL (6.3-8.2)
[2017-07-01] MEDS ORDERED: KETOROLAC 30 MG/ML 1 ML VIAL IM STA (22:13)
[2017-07-02] MEDS: AMPICILLIN-SULBACTAM 3 GM in SODIUM CHLORIDE 0.9% 100 ML IVPB SCH ×4 (00:08→20:48)
[2017-07-02] MEDS: ACETAMINOPHEN IV (For NPO) 1,000 MG in EMPTY BAG 1 BAG IVPB SCH ×2 (05:34→16:29)
[2017-07-02] MEDS: ONDANSETRON 4 MG/2 ML VIAL IVP PRN ×3 (06:00→16:30)
[2017-07-02] MEDS: LEVOTHYROXINE 75 MCG TAB PO SCH (06:41)
[2017-07-02] MEDS: MODAFINIL 200 MG TAB PO SCH (08:34)
[2017-07-02] MEDS: SODIUM CHLORIDE 0.9% 1,000 ML IV SCH ×2 (09:18→12:05)
[2017-07-02 09:31] LABS: HCT 38.3 % (34.0-46.0); HGB 12.9 gm/dL (11.4-16.0); MCH 30.6 pg (25.0-35.0); MCHC 33.6 g/dL (31.0-37.0); MCV 91.1 fL (80.0-100.0); Mean Platelet Volume 7.8; Platelet Count 229 k/uL (150-450); RBC 4.21 m/uL (3.80-5.40); RDW 12.8 % (11.5-15.5); WBC 6.7 k/uL (3.8-10.6)
[2017-07-02 10:15] LABS: ALT 16 U/L (9-52); AST 19 U/L (14-36); Albumin 3.7 g/dL (3.5-5.0); Alkaline Phosphatase 33 U/L (38-126); Anion Gap 14 mmol/L; Blood Urea Nitrogen 4 mg/dL (7-17); Calcium 8.7 mg/dL (8.4-10.2); Carbon Dioxide 21 mmol/L (22-30); Chloride 107 mmol/L (98-107); Glucose 90 mg/dL (74-99); Potassium 3.5 mmol/L (3.5-5.1); Sodium 142 mmol/L (137-145); Total Bilirubin 0.4 mg/dL (0.2-1.3)
[2017-07-02] MEDS: KETOROLAC 30 MG/ML 1 ML VIAL IVP PRN (10:54)
--- NOTE | 2017-07-03 00:09 | P.PN ---
Subjective Progress Note Date: 07/02/17 Principal diagnosis: Nausea vomiting and lower abdominal pain and urinary tract infection Patient is a a 32-year-old white female came to the hospital with complaints of nausea vomiting and abdominal pain mainly lower and also bilateral flank pain. 07/02/2017 Patient is still spiking fevers. The culture so far is negative. She was on Rocephin, was switched to Unasyn on 07/01/2017. Patient does have a history of IUD. ID will be consulted. Otherwise nausea and vomiting improved a walsh started tolerating oral diet. Patient is still complaining of lower abdominal pain. No commerce of chest pain or shortness of breath. No cough or sputum production. Denied any dysuria. All other review of systems negative except the above Active Medications Generic Name Dose Route Start Last Admin Trade Name Freq PRN Reason Stop Dose Admin Acetaminophen 650 mg 06/29/17 22:38 06/30/17 10:12 Tylenol Tab PO 650 mg Q6HR PRN Administration Mild Pain or Fever > 100.5 Alprazolam 0.25 mg 06/29/17 22:41 Xanax PO Q8HR PRN Anxiety Sodium Chloride 1,000 mls @ 100 mls/hr 06/30/17 10:00 07/02/17 12:05 Saline 0.9% IV 100 mls/hr .Q10H JOSHUA Administration Promethazine HCl 25 mg/ Sodium 51 mls @ 200 mls/hr 06/30/17 15:43 06/30/17 22 :36 Chloride IVPB 200 mls/hr Q6HR PRN Administration Nausea Ampicillin Sodium/Sulbactam 100 mls @ 100 mls/hr 07/01/17 08:00 07/02/17 20: 48 Sodium 3 gm/ Sodium Chloride IVPB 100 mls/hr Q6HR JOSHUA Administration Acetaminophen 1,000 mg/ IV 100 mls @ 400 mls/hr 07/02/17 12:00 07/02/17 16:29 Solution IVPB 07/03/17 06:14 400 mls/hr Q6HR JOSHUA Administration Ibuprofen 600 mg 06/30/17 18:49 07/01/17 12:39 Motrin PO 600 mg Q6HR PRN Administration fever Ketorolac Tromethamine 30 mg 07/02/17 10:26 07/02/17 10:54 Toradol IVP 07/06/17 10:27 30 mg Q6HR PRN Administration Pain Levothyroxine Sodium 75 mcg 06/30/17 06:30 07/02/17 06:41 Synthroid PO Not Given 0630 JOSHUA Modafinil 400 mg 06/30/17 09:00 07/02/17 08:34 Provigil PO Not Given DAILY JOSHUA Naloxone HCl 0.2 mg 06/29/17 22:38 Narcan IV Q2M PRN Opioid Reversal Ondansetron HCl 4 mg 07/01/17 07:10 07/02/17 16:30 Zofran IVP 4 mg Q6HR PRN Administration Nausea And Vomiting Objective - Vital Signs Vital signs: Vital Signs Temp 101.7 F H 07/02/17 16:28 Pulse 99 07/02/17 15:35 Resp 18 07/02/17 15:35 BP 129/87 07/02/17 15:35 Pulse Ox 100 07/02/17 15:35 Intake & Output 07/01/17 07/02/17 07/02/17 18:59 06:59 18:59 Intake Total 500 Output Total 350 Balance 500 -350 Intake: Oral 500 Output: Emesis 350 Other: Voiding Method Toilet Toilet # Voids 2 2 2 # Emeses 1 - Exam PHYSICAL EXAMINATION: Patient is lying in the bed comfortably, no acute distress, awake alert and oriented.. HEENT: Normocephalic. Neck is supple. Pupils reactive. Nostrils clear. Oral cavity is moist. Ears reveal no drainage. Neck reveals no JVD, carotid bruits, or thyromegaly. CHEST EXAMINATION: Trachea is central. Symmetrical expansion. Lung moody clear to auscultation and percussion. CARDIAC: Normal S1, S2 with no gallops. No murmurs ABDOMEN: Soft. Bowel sounds normal. No organomegaly. No abdominal bruits. Extremities: reveal no edema. No clubbing or cyanosis Neurologically awake, alert, oriented x3 with well-coordinated movements. No focal deficits noted Skin: No rash or skin lesions. Psychiatric: Coperative. Nonsuicidal Musculoskeletal: No joint swelling or deformity. Normal range of motion. - Labs CBC & Chem 7: 07/02/17 09:09 07/02/17 09:09 Labs: Abnormal Lab Results - Last 24 Hours (Table) 07/02/17 Range/Units 09:09 Carbon Dioxide 21 L (22-30) mmol/L BUN 4 L (7-17) mg/dL Creatinine 0.50 L (0.52-1.04) mg/dL Alkaline Phosphatase 33 L (38-126) U/L Total Protein 6.0 L (6.3-8.2) g/dL Microbiology - Last 24 Hours (Table) 06/29/17 20:26 Blood Culture - Preliminary Blood No Growth after 48 hours Assessment and Plan Assessment: Intractable nausea vomiting abdominal pain Acute pyelonephritis Anxiety History of IUD placement Plan: Patient will be continued on antibiotics in the form of Unasyn and symptomatic management for nausea and vomiting. IV hydration. Advance oral diet as tolerated. We'll consult ID for further evaluation. Blood cultures have been negative so far. Further recommendations based on the clinical course. Time with Patient: Greater than 30
[2017-07-03] MEDS: KETOROLAC 30 MG/ML 1 ML VIAL IVP PRN ×3 (00:21→23:28)
[2017-07-03] MEDS: SODIUM CHLORIDE 0.9% 1,000 ML IV SCH ×3 (00:24→23:28)
[2017-07-03] MEDS: ONDANSETRON 4 MG/2 ML VIAL IVP PRN ×4 (00:30→23:33)
[2017-07-03] MEDS: AMPICILLIN-SULBACTAM 3 GM in SODIUM CHLORIDE 0.9% 100 ML IVPB SCH ×5 (03:08→18:43)
[2017-07-03] MEDS: LEVOTHYROXINE 75 MCG TAB PO SCH (06:49)
[2017-07-03 07:01] LABS: Basophils % (A) 0 %; Eosinophils # (A) 0.1 k/uL (0-0.7); Eosinophils % (A) 2 %; HCT 36.8 % (34.0-46.0); HGB 12.7 gm/dL (11.4-16.0); Lymphocytes # (A) 1.5 k/uL (1.0-4.8); Lymphocytes % (A) 18 %; MCH 30.7 pg (25.0-35.0); MCHC 34.6 g/dL (31.0-37.0); MCV 88.8 fL (80.0-100.0); Mean Platelet Volume 7.5; Monocytes # (A) 0.3 k/uL (0-1.0); Monocytes % (A) 4 %; Neutrophils # (A) 6.3 k/uL (1.3-7.7); Neutrophils % (A) 74 %; Platelet Count 231 k/uL (150-450); RBC 4.14 m/uL (3.80-5.40); RDW 12.8 % (11.5-15.5); WBC 8.5 k/uL (3.8-10.6)
[2017-07-03 07:29] LABS: Anion Gap 14 mmol/L; Blood Urea Nitrogen 5 mg/dL (7-17); Calcium 8.5 mg/dL (8.4-10.2); Carbon Dioxide 24 mmol/L (22-30); Chloride 103 mmol/L (98-107); Glucose 81 mg/dL (74-99); Potassium 3.4 mmol/L (3.5-5.1); Sodium 141 mmol/L (137-145)
[2017-07-03] MEDS: ACETAMINOPHEN IV (For NPO) 1,000 MG in EMPTY BAG 1 BAG IVPB SCH ×4 (09:18→11:54)
[2017-07-03] MEDS: MODAFINIL 200 MG TAB PO SCH (09:20)
--- NOTE | 2017-07-03 15:47 | CONS ---
CONSULTATION DATE OF SERVICE: 07/03/2017 REASON FOR CONSULTATION: Fever. HISTORY OF PRESENT ILLNESS: The patient is a 32-year-old female who presented to the [facility] ER on 06/29/2017 with chief complaints of nausea, vomiting and diarrhea. The symptom had been going on for about 3 days prior to presentation to the hospital. The patient did not report any fever on arrival to the ER. However, subsequently did spike a fever of 101.1 to 101.7 and has been spiking fever on daily basis for the last 3 days. For her symptomatology the patient did have workup in the ER. The patient did have a CT of the abdomen and pelvis which reported liver and gallbladder to be without abnormality and no problem with the bowels. No obstruction seen and no acute finding. The patient did have a chest x-ray was reported to be negative. The patient did have a UA that was negative as well. Urine HCG was negative. The patient has been treated with Unasyn 3 g q.6 hours as of 07/01. I was asked to see the patient last evening for persistent fever though the patient has had no fever for the last 24 hours. The patient states she has been able to keep food down today without any vomiting and denies having any diarrhea. Denies having any chest pain or shortness of breath or cough. Denies any joint swelling and no cellulitis. REVIEW OF SYSTEMS: CONSTITUTIONAL: Positive for weakness along with the fever. Eyes: No complaint. ENT no complaint. Respiratory: No complaint. Cardiovascular: No complaint. Genitourinary: No complaint. Gastrointestinal: As per HPI. Musculoskeletal: No complaint. Integumentary no complaint. Psychological no complaint. Endocrine no complaint. Neurologic no complaint. PAST MEDICAL HISTORY: Epilepsy, anxiety, hypothyroidism. PAST SURGICAL HISTORY: Endarterectomy, tonsillectomy, stone removed from . SOCIAL HISTORY: Remote history of smoking. Occasionally drinks. No drug use. FAMILY HISTORY: No pertinent findings noticed. ALLERGIES: SULFA. MEDICATION: Medications include the patient currently on promethazine, Zofran, Narcan, Synthroid, Toradol, Motrin, Unasyn 3 g, Xanax and Tylenol. EXAMINATION: Blood pressure 112/76, pulse of 96, temperature 98.6. She is 100% on room air. General description is a middle aged female lying in bed in no distress. No tachypnea or accessory muscles of respiration use. HEENT: Shows no pallor or scleral icterus. Oral mucosa membranes are moist. No significant erythema or thrush. Neck trachea central. No thyromegaly. Lungs unlabored breathing, clear to auscultation anteriorly. No wheeze or crackles. Heart S1, S2 regular rate and rhythm. ABDOMEN: Soft, no tenderness. No guarding. No rigidity. No organomegaly. EXTREMITIES: No edema of feet. Skin examination: No rash or mass palpable. Neurological: Patient is awake, alert, oriented times three. Mood and affect normal. LABS: Hemoglobin 12.3, white count 8.5, BUN of 5, creatinine 0.56, potassium 3.4, urine HCG was negative. DIAGNOSTIC IMPRESSION AND PLAN: Patient admitted to the hospital with acute nausea, vomiting with generalized body aches, more likely pointing towards a viral gastroenteritis in a patient with currently no clear evidence of any secondary bacterial infection. The patient did have extensive workup including a CT abdomen and pelvis that was negative. Chest x-ray negative. Urine has been negative. The patient's overall clinical improvement with no fever for the last 24 hours. She was able to keep her food down today. PLAN: If the patient is able to tolerate her food today and no further vomiting has been noticed and no fever, she may be transitioned to a short course of oral Augmentin for about 5-7 days to finish a course of therapy. Thank you for this consultation. Will follow this patient. Plan of care discussed with the patient nurse as well as the admitting physician. MMODL / IJN: [id number] /
[2017-07-03] MEDS ORDERED: ACETAMINOPHEN IV (For NPO) 1,000 MG in EMPTY BAG 1 BAG IVPB ONE (18:15)
[2017-07-04] MEDS: AMPICILLIN-SULBACTAM 3 GM in SODIUM CHLORIDE 0.9% 100 ML IVPB SCH ×4 (00:24→18:18)
--- NOTE | 2017-07-04 01:25 | P.PN ---
Subjective Progress Note Date: 07/03/17 Principal diagnosis: Nausea vomiting and lower abdominal pain and urinary tract infection Patient is a a 32-year-old white female came to the hospital with complaints of nausea vomiting and abdominal pain mainly lower and also bilateral flank pain. 07/02/2017 Patient is still spiking fevers. The culture so far is negative. She was on Rocephin, was switched to Unasyn on 07/01/2017. Patient does have a history of IUD. ID will be consulted. Otherwise nausea and vomiting improved a walsh started tolerating oral diet. Patient is still complaining of lower abdominal pain. No commerce of chest pain or shortness of breath. No cough or sputum production. Denied any dysuria. 54 to the 18 Patient has been afebrile today. Continued advice of [facility]. ID is following. Otherwise patient did improve symptomatically and increase oral diet and advance as tolerated. Anticipate discharge next 24 hours All other review of systems negative except the above Active Medications Generic Name Dose Route Start Last Admin Trade Name Freq PRN Reason Stop Dose Admin Acetaminophen 650 mg 06/29/17 22:38 06/30/17 10:12 Tylenol Tab PO 650 mg Q6HR PRN Administration Mild Pain or Fever > 100.5 Alprazolam 0.25 mg 06/29/17 22:41 Xanax PO Q8HR PRN Anxiety Sodium Chloride 1,000 mls @ 100 mls/hr 06/30/17 10:00 07/02/17 12:05 Saline 0.9% IV 100 mls/hr .Q10H JOSHUA Administration Promethazine HCl 25 mg/ Sodium 51 mls @ 200 mls/hr 06/30/17 15:43 06/30/17 22 :36 Chloride IVPB 200 mls/hr Q6HR PRN Administration Nausea Ampicillin Sodium/Sulbactam 100 mls @ 100 mls/hr 07/01/17 08:00 07/02/17 20: 48 Sodium 3 gm/ Sodium Chloride IVPB 100 mls/hr Q6HR JOSHUA Administration Acetaminophen 1,000 mg/ IV 100 mls @ 400 mls/hr 07/02/17 12:00 07/02/17 16:29 Solution IVPB 07/03/17 06:14 400 mls/hr Q6HR JOSHUA Administration Ibuprofen 600 mg 06/30/17 18:49 07/01/17 12:39 Motrin PO 600 mg Q6HR PRN Administration fever Ketorolac Tromethamine 30 mg 07/02/17 10:26 07/02/17 10:54 Toradol IVP 07/06/17 10:27 30 mg Q6HR PRN Administration Pain Levothyroxine Sodium 75 mcg 06/30/17 06:30 07/02/17 06:41 Synthroid PO Not Given 0630 JOSHUA Modafinil 400 mg 06/30/17 09:00 07/02/17 08:34 Provigil PO Not Given DAILY JOSHUA Naloxone HCl 0.2 mg 06/29/17 22:38 Narcan IV Q2M PRN Opioid Reversal Ondansetron HCl 4 mg 07/01/17 07:10 07/02/17 16:30 Zofran IVP 4 mg Q6HR PRN Administration Nausea And Vomiting Objective - Vital Signs Vital signs: Vital Signs Temp 98.6 F 07/03/17 11:30 Pulse 108 H 07/03/17 11:30 Resp 17 07/03/17 11:30 BP 112/76 07/03/17 11:30 Pulse Ox 100 07/03/17 11:30 Intake & Output 07/02/17 07/03/17 07/03/17 18:59 06:59 18:59 Intake Total 250 Balance 250 Intake: Oral 250 Other: Voiding Method Toilet Toilet Toilet # Voids 2 1 2 # Emeses 1 - Exam PHYSICAL EXAMINATION: Patient is lying in the bed comfortably, no acute distress, awake alert and oriented.. HEENT: Normocephalic. Neck is supple. Pupils reactive. Nostrils clear. Oral cavity is moist. Ears reveal no drainage. Neck reveals no JVD, carotid bruits, or thyromegaly. CHEST EXAMINATION: Trachea is central. Symmetrical expansion. Lung moody clear to auscultation and percussion. CARDIAC: Normal S1, S2 with no gallops. No murmurs ABDOMEN: Soft. Bowel sounds normal. No organomegaly. No abdominal bruits. Extremities: reveal no edema. No clubbing or cyanosis Neurologically awake, alert, oriented x3 with well-coordinated movements. No focal deficits noted Skin: No rash or skin lesions. Psychiatric: Coperative. Nonsuicidal Musculoskeletal: No joint swelling or deformity. Normal range of motion. - Labs CBC & Chem 7: 05/04/18 06:48 07/03/17 06:48 Labs: Abnormal Lab Results - Last 24 Hours (Table) 07/03/17 Range/Units 06:48 Potassium 3.4 L (3.5-5.1) mmol/L BUN 5 L (7-17) mg/dL Microbiology - Last 24 Hours (Table) 07/01/17 23:21 Blood Culture - Preliminary Blood No Growth after 24 hours 07/01/17 22:36 Blood Culture - Preliminary Blood No Growth after 24 hours 06/29/17 20:26 Blood Culture - Preliminary Blood No Growth after 72 hours Assessment and Plan Assessment: Intractable nausea vomiting abdominal pain Acute pyelonephritis Anxiety History of IUD placement Plan: Patient will be continued on antibiotics in the form of Unasyn and symptomatic management for nausea and vomiting. IV hydration. Advance oral diet as tolerated. Blood cultures have been negative so far. Further recommendations based on the clinical course. Time with Patient: Greater than 30
[2017-07-04] MEDS: KETOROLAC 30 MG/ML 1 ML VIAL IVP PRN (05:49)
[2017-07-04] MEDS: LEVOTHYROXINE 75 MCG TAB PO SCH (05:56)
[2017-07-04] MEDS: ACETAMINOPHEN TAB 325 MG TAB PO PRN (11:08)
[2017-07-04] MEDS: SODIUM CHLORIDE 0.9% 1,000 ML IV SCH ×2 (12:21→19:25)
[2017-07-04] MEDS: MODAFINIL 200 MG TAB PO SCH (12:25)
--- NOTE | 2017-07-04 13:42 | XR ---
EXAMINATION TYPE: XR chest 1V DATE OF EXAM: 07/04/2017 HISTORY: fever. REFERENCE: Previous study dated 06/29/2017. FINDINGS: The lungs are clear. Pleural spaces are clear. The heart is not enlarged. IMPRESSION: NORMAL CHEST.
[2017-07-04] MEDS: ONDANSETRON 4 MG/2 ML VIAL IVP PRN (18:22)
[2017-07-04] MEDS: ACETAMINOPHEN IV (For NPO) 1,000 MG in EMPTY BAG 1 BAG IVPB PRN (19:24)
--- NOTE | 2017-07-04 22:32 | P.PN ---
Subjective Progress Note Date: 07/04/17 Principal diagnosis: Nausea vomiting and lower abdominal pain and urinary tract infection Patient is a a 32-year-old white female came to the hospital with complaints of nausea vomiting and abdominal pain mainly lower and also bilateral flank pain. 07/02/2017 Patient is still spiking fevers. The culture so far is negative. She was on Rocephin, was switched to Unasyn on 07/01/2017. Patient does have a history of IUD. ID will be consulted. Otherwise nausea and vomiting improved a walsh started tolerating oral diet. Patient is still complaining of lower abdominal pain. No commerce of chest pain or shortness of breath. No cough or sputum production. Denied any dysuria. 07/03/2017 Patient has been afebrile today. Continued advice of Unasyn. ID is following. Otherwise patient did improve symptomatically and increase oral diet and advance as tolerated. Anticipate discharge next 24 hours ,. 07/04/2017 Patient spiked fever again today. Repeat chest x-rays negative. Otherwise patient is being continued on IV Unasyn. No complaints of abdominal pain. Nausea vomiting and abdominal pain resolved. Started tolerating oral diet. Encourage incentive spirometry otherwise. We will reduce IV fluids to 75 mL per hour. ID is following. All other review of systems negative except the above Active Medications Generic Name Dose Route Start Last Admin Trade Name Freq PRN Reason Stop Dose Admin Acetaminophen 650 mg 06/29/17 22:38 06/30/17 10:12 Tylenol Tab PO 650 mg Q6HR PRN Administration Mild Pain or Fever > 100.5 Alprazolam 0.25 mg 06/29/17 22:41 Xanax PO Q8HR PRN Anxiety Sodium Chloride 1,000 mls @ 100 mls/hr 06/30/17 10:00 07/02/17 12:05 Saline 0.9% IV 100 mls/hr .Q10H JOSHUA Administration Promethazine HCl 25 mg/ Sodium 51 mls @ 200 mls/hr 06/30/17 15:43 06/30/17 22 :36 Chloride IVPB 200 mls/hr Q6HR PRN Administration Nausea Ampicillin Sodium/Sulbactam 100 mls @ 100 mls/hr 07/01/17 08:00 07/02/17 20: 48 Sodium 3 gm/ Sodium Chloride IVPB 100 mls/hr Q6HR JOSHUA Administration Acetaminophen 1,000 mg/ IV 100 mls @ 400 mls/hr 07/02/17 12:00 07/02/17 16:29 Solution IVPB 07/03/17 06:14 400 mls/hr Q6HR JOSHUA Administration Ibuprofen 600 mg 06/30/17 18:49 07/01/17 12:39 Motrin PO 600 mg Q6HR PRN Administration fever Ketorolac Tromethamine 30 mg 07/02/17 10:26 07/02/17 10:54 Toradol IVP 07/06/17 10:27 30 mg Q6HR PRN Administration Pain Levothyroxine Sodium 75 mcg 06/30/17 06:30 07/02/17 06:41 Synthroid PO Not Given 0630 [facility] Modafinil 400 mg 06/30/17 09:00 07/02/17 08:34 Provigil PO Not Given DAILY [facility] Naloxone HCl 0.2 mg 06/29/17 22:38 Narcan IV Q2M PRN Opioid Reversal Ondansetron HCl 4 mg 07/01/17 07:10 07/02/17 16:30 Zofran IVP 4 mg Q6HR PRN Administration Nausea And Vomiting Objective - Vital Signs Vital signs: Vital Signs Temp 98.4 F 07/04/17 20:30 Pulse 76 07/04/17 19:00 Resp 18 07/04/17 19:00 BP 139/84 07/04/17 19:00 Pulse Ox 97 07/04/17 19:00 Intake & Output 07/04/17 07/04/17 07/05/17 06:59 18:59 06:59 Intake Total 560 1160 Balance 560 1160 Intake: Oral 560 1160 Other: # Voids 1 3 2 - Exam PHYSICAL EXAMINATION: Patient is lying in the bed comfortably, no acute distress, awake alert and oriented.. HEENT: Normocephalic. Neck is supple. Pupils reactive. Nostrils clear. Oral cavity is moist. Ears reveal no drainage. Neck reveals no JVD, carotid bruits, or thyromegaly. CHEST EXAMINATION: Trachea is central. Symmetrical expansion. Lung moody clear to auscultation and percussion. CARDIAC: Normal S1, S2 with no gallops. No murmurs ABDOMEN: Soft. Bowel sounds normal. No organomegaly. No abdominal bruits. Extremities: reveal no edema. No clubbing or cyanosis Neurologically awake, alert, oriented x3 with well-coordinated movements. No focal deficits noted Skin: No rash or skin lesions. Psychiatric: Coperative. Nonsuicidal Musculoskeletal: No joint swelling or deformity. Normal range of motion. - Labs CBC & Chem 7: 07/03/17 06:48 07/03/17 06:48 Labs: Microbiology - Last 24 Hours (Table) 07/01/17 23:21 Blood Culture - Preliminary Blood No Growth after 48 hours 07/01/17 22:36 Blood Culture - Preliminary Blood No Growth after 48 hours 06/29/17 20:26 Blood Culture - Preliminary Blood No Growth after 96 hours Assessment and Plan Assessment: Intractable nausea vomiting abdominal pain Fever. Unknown origin Acute pyelonephritis Anxiety History of IUD placement Plan: Patient will be continued on antibiotics in the form of Unasyn and symptomatic management for nausea and vomiting. IV hydration. Advance oral diet as tolerated. Blood cultures have been negative so far. Further recommendations based on the clinical course. Time with Patient: Greater than 30
[2017-07-05] MEDS: SODIUM CHLORIDE 0.9% 1,000 ML IV SCH ×3 (00:02→16:33)
[2017-07-05] MEDS: AMPICILLIN-SULBACTAM 3 GM in SODIUM CHLORIDE 0.9% 100 ML IVPB SCH ×5 (00:02→22:46)
[2017-07-05] MEDS: ONDANSETRON 4 MG/2 ML VIAL IVP PRN ×2 (03:44→10:51)
[2017-07-05] MEDS: ACETAMINOPHEN IV (For NPO) 1,000 MG in EMPTY BAG 1 BAG IVPB PRN (04:12)
[2017-07-05] MEDS: LEVOTHYROXINE 75 MCG TAB PO SCH (06:15)
[2017-07-05 07:12] LABS: Basophils % (A) 0 %; Eosinophils # (A) 0.1 k/uL (0-0.7); Eosinophils % (A) 2 %; HCT 35.6 % (34.0-46.0); HGB 12.3 gm/dL (11.4-16.0); Lymphocytes # (A) 1.4 k/uL (1.0-4.8); Lymphocytes % (A) 18 %; MCH 30.7 pg (25.0-35.0); MCHC 34.4 g/dL (31.0-37.0); MCV 89.1 fL (80.0-100.0); Mean Platelet Volume 7.7; Monocytes # (A) 0.4 k/uL (0-1.0); Monocytes % (A) 5 %; Neutrophils # (A) 5.9 k/uL (1.3-7.7); Neutrophils % (A) 73 %; Platelet Count 236 k/uL (150-450); WBC 8.1 k/uL (3.8-10.6)
[2017-07-05 07:25] LABS: Anion Gap 13 mmol/L; Blood Urea Nitrogen 6 mg/dL (7-17); Calcium 8.8 mg/dL (8.4-10.2); Carbon Dioxide 23 mmol/L (22-30); Chloride 104 mmol/L (98-107); Glucose 95 mg/dL (74-99); Potassium 3.3 mmol/L (3.5-5.1); Sodium 140 mmol/L (137-145)
[2017-07-05] MEDS: MODAFINIL 200 MG TAB PO SCH (09:30)
[2017-07-05] MEDS ORDERED: FLUCONAZOLE 100 MG TAB PO ONE (13:10)
[2017-07-05 13:40] LABS: Appearance,Urine Clear (Clear); Bilirubin,Urine Negative (Negative); Blood,Urine Trace (Negative); Color,Urine Light Yellow; Glucose,Urine (UA) Negative (Negative); Ketones,Urine Negative (Negative); Leukocyte Esterase,Urine Negative (Negative); Mucus,Urine Rare /hpf; Nitrite,Urine Negative (Negative); PH, Urine 7.5 (5.0-8.0); Protein,Urine Negative (Negative); RBC,Urine 1 /hpf (0-5); Specific Gravity,Urine 1.009 (1.001-1.035); Squamous Epithelial Cell,Urine <1 /hpf (0-4); Urobilinogen,Urine <2.0 mg/dL (<2.0); WBC,Urine 1 /hpf (0-5)
--- NOTE | 2017-07-05 13:48 | CT ---
EXAMINATION TYPE: CT brain wo con DATE OF EXAM: 07/05/2017 COMPARISON: NONE HISTORY: Headache and fever for [address] DLP: 1047.1 mGycm Automated exposure control for dose reduction was used. FINDINGS: Central structures are midline. There is no evidence of hydrocephalus. No acute focal lesion, mass ef fect or midline shift is seen. I do not see evidence of intracranial blood. Visualized portions of the paranasal sinuses and mastoids are clear. The bony calvarium is intact. IMPRESSION: NORMAL CT SCAN OF THE BRAIN.
[2017-07-05] MEDS: PROMETHAZINE INJ 6.25 MG in SODIUM CHLORIDE 0.9% 50 ML IVPB PRN (14:24)
[2017-07-05] MEDS: KETOROLAC 30 MG/ML 1 ML VIAL IVP PRN (16:19)
[2017-07-06] MEDS: PROMETHAZINE INJ 6.25 MG in SODIUM CHLORIDE 0.9% 50 ML IVPB PRN ×3 (00:10→17:27)
--- NOTE | 2017-07-06 00:47 | P.PN ---
Subjective Progress Note Date: 07/05/17 Principal diagnosis: Nausea vomiting and lower abdominal pain and urinary tract infection Patient is a a 32-year-old white female came to the hospital with complaints of nausea vomiting and abdominal pain mainly lower and also bilateral flank pain. 07/02/2017 Patient is still spiking fevers. The culture so far is negative. She was on Rocephin, was switched to Unasyn on 07/01/2017. Patient does have a history of IUD. ID will be consulted. Otherwise nausea and vomiting improved a walsh started tolerating oral diet. Patient is still complaining of lower abdominal pain. No commerce of chest pain or shortness of breath. No cough or sputum production. Denied any dysuria. 07/03/2017 Patient has been afebrile today. Continued advice of Unasyn. ID is following. Otherwise patient did improve symptomatically and increase oral diet and advance as tolerated. Anticipate discharge next 24 hours ,. 07/04/2017 Patient spiked fever again today. Repeat chest x-rays negative. Otherwise patient is being continued on IV Unasyn. No complaints of abdominal pain. Nausea vomiting and abdominal pain resolved. Started tolerating oral diet. Encourage incentive spirometry otherwise. We will reduce IV fluids to 75 mL per hour. ID is following. 07/05/2017 Patient did have fever 100.8 today afternoon. Otherwise patient denied any complaints of chest pain or shortness of breath. Chest x-ray negative. Patient is also complaining of headache mainly lower neck and occipital area. CT head was ordered and we'll consider ordering viral panel and discuss further with ID. No complaints abdominal pain. No nausea vomiting. No leg swelling. Patient has been saturating well on room air. No other acute overnight issues. All other review of systems negative except the above Active Medications Generic Name Dose Route Start Last Admin Trade Name Freq PRN Reason Stop Dose Admin Acetaminophen 650 mg 06/29/17 22:38 06/30/17 10:12 Tylenol Tab PO 650 mg Q6HR PRN Administration Mild Pain or Fever > 100.5 Alprazolam 0.25 mg 06/29/17 22:41 Xanax PO Q8HR PRN Anxiety Sodium Chloride 1,000 mls @ 100 mls/hr 06/30/17 10:00 07/02/17 12:05 Saline 0.9% IV 100 mls/hr .Q10H JOSHUA Administration Promethazine HCl 25 mg/ Sodium 51 mls @ 200 mls/hr 06/30/17 15:43 06/30/17 22 :36 Chloride IVPB 200 mls/hr Q6HR PRN Administration Nausea Ampicillin Sodium/Sulbactam 100 mls @ 100 mls/hr 07/01/17 08:00 07/02/17 20: 48 Sodium 3 gm/ Sodium Chloride IVPB 100 mls/hr Q6HR JOSHUA Administration Acetaminophen 1,000 mg/ IV 100 mls @ 400 mls/hr 07/02/17 12:00 07/02/17 16:29 Solution IVPB 07/03/17 06:14 400 mls/hr Q6HR JOSHUA Administration Ibuprofen 600 mg 06/30/17 18:49 07/01/17 12:39 Motrin PO 600 mg Q6HR PRN Administration fever Ketorolac Tromethamine 30 mg 07/02/17 10:26 07/02/17 10:54 Toradol IVP 07/06/17 10:27 30 mg Q6HR PRN Administration Pain Levothyroxine Sodium 75 mcg 06/30/17 06:30 07/02/17 06:41 Synthroid PO Not Given 0630 JOSHUA Modafinil 400 mg 06/30/17 09:00 07/02/17 08:34 Provigil PO Not Given DAILY [facility] Naloxone HCl 0.2 mg 06/29/17 22:38 Narcan IV Q2M PRN Opioid Reversal Ondansetron HCl 4 mg 07/01/17 07:10 07/02/17 16:30 Zofran IVP 4 mg Q6HR PRN Administration Nausea And Vomiting Objective - Vital Signs Vital signs: Vital Signs Temp 99.1 F 07/05/17 12:36 Pulse 110 H 07/05/17 12:36 Resp 18 07/05/17 12:36 BP 135/86 07/05/17 12:36 Pulse Ox 97 07/05/17 12:36 Intake & Output 07/04/17 07/05/17 07/05/17 18:59 06:59 18:59 Intake Total 560 1740 Balance 560 1740 Intake: Oral 560 1740 Other: # Voids 3 2 1 # Bowel Movements 1 - Exam PHYSICAL EXAMINATION: Patient is lying in the bed comfortably, no acute distress, awake alert and oriented.. HEENT: Normocephalic. Neck is supple. Pupils reactive. Nostrils clear. Oral cavity is moist. Ears reveal no drainage. Neck reveals no JVD, carotid bruits, or thyromegaly. CHEST EXAMINATION: Trachea is central. Symmetrical expansion. Lung moody clear to auscultation and percussion. CARDIAC: Normal S1, S2 with no gallops. No murmurs ABDOMEN: Soft. Bowel sounds normal. No organomegaly. No abdominal bruits. Extremities: reveal no edema. No clubbing or cyanosis Neurologically awake, alert, oriented x3 with well-coordinated movements. No focal deficits noted Skin: No rash or skin lesions. Psychiatric: Coperative. Nonsuicidal Musculoskeletal: No joint swelling or deformity. Normal range of motion. - Labs CBC & Chem 7: 07/05/17 06:52 07/05/17 06:52 Labs: Abnormal Lab Results - Last 24 Hours (Table) 07/05/17 07/05/17 Range/Units 06:52 12:40 Potassium 3.3 L (3.5-5.1) mmol/L BUN 6 L (7-17) mg/dL Creatinine 0.51 L (0.52-1.04) mg/dL Urine Blood Trace H (Negative) Urine Mucus Rare H (None) /hpf Microbiology - Last 24 Hours (Table) 07/01/17 23:21 Blood Culture - Preliminary Blood No Growth after 72 hours 07/01/17 22:36 Blood Culture - Preliminary Blood No Growth after 72 hours 06/29/17 20:26 Blood Culture - Preliminary Blood No Growth after 120 hours Assessment and Plan Assessment: Intractable nausea vomiting abdominal pain. Resolved Fever. Unknown origin. Patient current is to have fever now History of MTHFR gene mutation Acute pyelonephritis. Resolved now Anxiety History of IUD placement. Unlikely infection at this time. Plan: Patient will be continued on antibiotics in the form of Unasyn and symptomatic management for nausea and vomiting. IV hydration. Advance oral diet as tolerated. Blood cultures have been negative so far. ID is following. Further recommendations based on the clinical course. Time with Patient: Greater than 30
[2017-07-06] MEDS: KETOROLAC 30 MG/ML 1 ML VIAL IVP PRN (04:12)
[2017-07-06] MEDS: SODIUM CHLORIDE 0.9% 1,000 ML IV SCH ×2 (04:14→15:35)
[2017-07-06] MEDS: AMPICILLIN-SULBACTAM 3 GM in SODIUM CHLORIDE 0.9% 100 ML IVPB SCH ×2 (05:52→13:50)
[2017-07-06] MEDS: LEVOTHYROXINE 75 MCG TAB PO SCH (05:52)
--- NOTE | 2017-07-06 07:59 | P.PN ---
Subjective Principal diagnosis: Fever spikes. Continuing care. This is a 32-year-old white female essentially omitted for acute bronchitis. However, she's had intractable nausea and vomiting. Appreciate multiple consultants including infectious disease. GIs now consulted. The medication does seem to help her but she's taking it and a scheduled fashion at this point. She still spiking fever. However, cultures and CBC have been nominal. Question micaceous side effect. She was originally admitted on Rocephin and switched to Unasyn after bout 24-36 hours. This is not necessarily helped her nausea. No significant diarrhea stated. Objective - Vital Signs Vital signs: Vital Signs Temp 98.4 F 07/05/17 22:47 Pulse 95 07/05/17 22:47 Resp 18 07/05/17 22:47 BP 119/73 07/05/17 22:47 Pulse Ox 99 07/05/17 22:47 Intake & Output 07/05/17 07/06/17 07/06/17 18:59 06:59 18:59 Intake Total 820 Balance 820 Intake: Oral 820 Other: # Voids 1 # Bowel Movements 1 # Emeses 1 - Constitutional General appearance: Present: average body habitus - EENT Eyes: Absent: abnormal pupil - Neck Neck: Absent: lymphadenopathy - Respiratory Respiratory: bilateral: CTA - Cardiovascular Rhythm: regular Heart sounds: normal: S1, S2 Abnormal Heart Sounds: Absent: S3 Gallop - Gastrointestinal General gastrointestinal: Present: soft. Absent: tenderness - Integumentary Integumentary: Absent: cellulitis - Neurologic Neurologic: Present: CNII-XII intact - Labs CBC & Chem 7: 07/05/17 06:52 07/05/17 06:52 Labs: Abnormal Lab Results - Last 24 Hours (Table) 07/05/17 Range/Units 12:40 Urine Blood Trace H (Negative) Urine Mucus Rare H (None) /hpf Microbiology - Last 24 Hours (Table) 07/01/17 23:21 Blood Culture - Preliminary Blood No Growth after 96 hours 07/01/17 22:36 Blood Culture - Preliminary Blood No Growth after 96 hours 06/29/17 20:26 Blood Culture - Final Blood No Growth after 144 hours 07/05/17 11:20 Stool for WBCs - Final Stool 07/05/17 11:20 Stool Culture - Preliminary Stool Assessment and Plan (1) Intractable nausea and vomiting Current Visit: Yes Status: Acute Code(s): R11.2 - NAUSEA WITH VOMITING, UNSPECIFIED SNOMED Code(s): 217042848 (2) Anxiety Current Visit: No Status: Acute Code(s): F41.9 - ANXIETY DISORDER, UNSPECIFIED SNOMED Code(s): 66648442 (3) Pyelonephritis Current Visit: No Status: Acute Code(s): N12 - TUBULO-INTERSTITIAL NEPHRITIS , NOT [facility]PC[facility] ACUTE OR CHRONIC SNOMED Code(s): 38453954 Plan: await GI consultation for nausea and vomiting. Appreciate ID consultation. See orders otherwise. Time with Patient: Less than 30
[2017-07-06] MEDS: MODAFINIL 200 MG TAB PO SCH (09:47)
[2017-07-06 11:57] VITALS: BMI 31.8
--- NOTE | 2017-07-06 13:14 | CONS ---
CONSULTATION DATE OF SERVICE: 07/06/2017 REASON FOR CONSULTATION: Nausea, vomiting. HISTORY OF PRESENT ILLNESS: The patient is a 32-year-old pleasant white female who was admitted to the hospital a week ago with symptoms of fever, nausea, vomiting for the last 10 days duration. The symptoms began 10 days ago when she had a fever of 101.7, came into the emergency room, was treated empirically and was discharged home. Two days later she continued to have worsening symptoms now with nausea, vomiting, and fever up to 103, came back to the emergency room and admitted to the hospital and was started on broad-spectrum antibiotics. She did have a CT of the abdomen and pelvis done which was unremarkable. In the last one week, she was initially on Rocephin which was changed to Unasyn about 4 days ago. During all this time, she still has low-grade fever. She had urinalysis that was negative. She was evaluated by Dr. Ayala also. In the meantime, she has episodes of nausea and vomiting once or twice a day, vague abdominal discomfort. No diarrhea. No rectal bleeding. Never had these symptoms in the past. She was diagnosed with urosepsis about a year ago and was hospitalized for 4 days at which time she did have some nausea, vomiting that was short lived. She continues to have low-grade fever the last T-max was 100.8. She denies any cough, shortness of breath. No chest pain. No skin rashes. PAST MEDICAL HISTORY: Anxiety, epilepsy, hypothyroidism. CURRENT MEDICATIONS: Current medications include Unasyn, Xanax, Tylenol, Synthroid, Motrin, Provigil, Narcan, Zofran, Protonix, Phenergan. SOCIAL HISTORY: No smoking or alcohol use. FAMILY HISTORY: Unremarkable. REVIEW OF SYSTEMS: CARDIOPULMONARY: No chest pain, shortness of breath. GENITOURINARY: No dysuria or hematuria. MUSCULOSKELETAL: Unremarkable. SKIN: Unremarkable. ENDOCRINE: Unremarkable. PSYCHIATRIC: Unremarkable. NEUROLOGY: Unremarkable. ENT/VISION: Unremarkable. CONSTITUTIONAL: Low-grade fever, but no chills, or night sweats. PHYSICAL EXAMINATION: On physical examination, she appears comfortable, no apparent distress. Vital signs are stable. Blood pressure 142/87, pulse rate 104, temperature 98. HEENT examination unremarkable. Conjunctivae pink. Sclerae anicteric. Oral cavity no lesions. NECK: No JVD or lymph node enlargement. Chest was clear to auscultation. HEART: Regular rate and rhythm. ABDOMEN: Soft. Bowel sounds are positive. It was nontender, nondistended. EXTREMITIES: No pedal edema. SKIN: No rashes. NEURO: Alert and oriented x3. No focal deficits. LABS: Labs done today WBC 8.1, hemoglobin 12.3, platelets are normal. Basic metabolic panel is within normal limits. Urinalysis is negative. Stool C. difficile and cultures were negative at the time of admission to the hospital. IMPRESSION: This is a lady who was admitted to hospital with fever, myalgias/nausea, vomiting for the last 3 days duration. Most likely we are dealing with a viral syndrome/viral gastroenteritis. She was seen by Dr. Ayala. The patient has been on broad-spectrum antibiotics. She continues to have low-grade fever associated with nausea, vomiting, presently receiving Zofran and Protonix with minimal help. Most likely the nausea, vomiting is related to the viral syndrome rather than any specific upper gastrointestinal pathology. RECOMMENDATIONS: 1. Continue with IV Protonix 40 mg q.12 hours. 2. Zofran/Phenergan as needed for the nausea. 3. Small frequent meals. 4. At this time, I will hold on upper endoscopy. 5. Re-evaluate the patient in the morning. The patient is having a second opinion with and will await his recommendations. Thank you for this consultation. MMODL / IJN: [id number] /
[2017-07-06] MEDS: PANTOPRAZOLE 40 MG/10 ML VIAL IVP SCH (14:14)
[2017-07-06] MEDS ORDERED: ERYTHROMYCIN IV SCH ×2 (18:00→21:00)
[2017-07-06] MEDS ORDERED: SODIUM CHLORIDE 0.9% IV SCH ×2 (18:00→21:00)
--- NOTE | 2017-07-06 21:32 | P.CONS ---
History of Present Illness - Reason for Consult Consult date: 07/06/17 - Chief Complaint Nausea and emesis - History of Present Illness 32-year-old female with hypothyroidism presents to Hospital feeling very poorly for several days before her admission. She started to have abdominal pain associated with nausea and emesis. She also was having fevers multiple times throughout the day associated with chills. She was not able to keep down medications and fluids and nutrition and constantly did present to the emergency center. Was treated and released. It within a day was much worse and then was admitted to hospital with concerns to underlying sepsis and gastroenteritis because of her ongoing nausea and emesis. She has a history of prior pyelonephritis more than a year ago. The patient relates that she lives with her boyfriend and child and they have been well. No one else has been ill in her home setting. There are several animals including dogs cats and a amphibian none of them are new, and she claims to take his ever had difficulties with the tank water. Since her hospitalization she continues to feel poorly. Fortunately her fevers started to improve a bit but continues to have ongoing. Nausea and emesis and just does not feel well. Within is having some abdominal discomfort. She's also had some headache. Review of Systems HEENT: Has had headaches but no acute visual changes . Denies sinus or mouth discomforts. Denies neck stiffness or pain. Denies significant oral cavity pain. Denies difficulty on swallowing. Lungs: Denies significant shortness of breath, cough, sputum production, or hemoptysis. Cardiovascular: Denies significant shortness of breath, chest pain, chest wall pain, orthopnea, dyspnea on exertion, syncope Gastrointestinal: As per the HPI severe nausea and emesis but no hematemesis melena or hematochezia. Loose stool noted. Musculoskeletal: denies significant myalgias or arthralgias. No new joint swelling. Denies new back pain. Skin: Denies new rash or lesions. No new ulcers or wounds are related.. Neuro: Denies headache or visual change. Denies any new onset weakness or difficulty with ambulation. Denies falls or seizures. Psychiatric:Denies anxiety or depression. Endocrine: Denies significant fatigue, denies significant weight loss or weight gain. Past Medical History Past Medical History: Thyroid Disorder Additional Past Medical History / Comment(s): narcoplepsy, anxiety, MTHFR, 2 miscarriages History of Any Multi-Drug Resistant Organisms: None Reported Past Surgical History: Adenoidectomy, Tonsillectomy Additional Past Surgical History / Comment(s): stone removal for salivary gland Past Anesthesia/Blood Transfusion Reactions: No Reported Reaction Additional Past Anesthesia/Blood Transfusion Reaction / Comm: never had blood transfusion Past Psychological History: Anxiety Additional Psychological History / Comment(s): With her boyfriend and her son. 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 No international travel. No new animals as noted in the HPI. No recreational drug use. No experience Smoking Status: Former smoker Past Alcohol Use History: Occasional Past Drug Use History: None Reported - Past Family History Father Family Medical History: Diabetes Mellitus, Hyperlipidemia, Hypertension Additional Family Medical History / Comment(s): bipass surgery Mother Family Medical History: Hyperlipidemia, Hypertension Medications and Allergies Home Medications and Allergies Comment(s): Current Medications Acetaminophen (Tylenol Tab) 650 mg PO Q6HR PRN PRN Reason: Mild Pain or Fever > 100.5 Last Admin: 07/04/17 11:08 Dose: 650 mg Alprazolam (Xanax) 0.25 mg PO Q8HR PRN PRN Reason: Anxiety Sodium Chloride (Saline 0.9%) 1,000 mls @ 100 mls/hr IV .Q10H [facility] Last Admin: 07/06/17 15:35 Dose: 100 mls/hr Promethazine HCl 6.25 mg/ (Sodium Chloride) 50.25 mls @ 200 mls/hr IVPB Q6HR PRN PRN Reason: nausea/vomitting Last Admin: 07/06/17 17:27 Dose: 200 mls/hr Ibuprofen (Motrin) 600 mg PO Q6HR PRN PRN Reason: fever Last Admin: 07/01/17 12:39 Dose: 600 mg Levothyroxine Sodium (Synthroid) 75 mcg PO 0630 [facility] Last Admin: 07/06/17 05:52 Dose: 75 mcg Modafinil (Provigil) 400 mg PO DAILY [facility] Last Admin: 07/06/17 09:47 Dose: 400 mg Naloxone HCl (Narcan) 0.2 mg IV Q2M PRN PRN Reason: Opioid Reversal Ondansetron HCl (Zofran) 4 mg IVP Q6HR PRN PRN Reason: Nausea And Vomiting Last Admin: 07/05/17 10:51 Dose: 4 mg Pantoprazole Sodium (Protonix) 40 mg IVP DAILY [facility] Last Admin: 07/06/17 14:14 Dose: 40 mg Home Medications Medication Instructions Recorded Confirmed Type ALPRAZolam [Xanax] 0.25 mg PO Q8HR PRN 04/30/14 06/29/17 History Levothyroxine Sodium [Synthroid] 75 mcg PO DAILY 04/30/14 06/29/17 History Modafinil [Provigil] 400 mg PO DAILY 11/10/14 06/29/17 History Allergies Allergy/AdvReac Type Severity Reaction Status Date / Time Sulfa (Sulfonamide Allergy Rash/Hives Verified 07/03/17 19:35 Antibiotics) Physical Exam Vitals: Vital Signs Temp Pulse Resp BP Pulse Ox 07/06/17 20:23 98.9 F 102 H 16 132/87 99 07/06/17 15:00 98.5 F 115 H 20 146/93 99 07/06/17 13:09 98.6 F 07/06/17 11:10 98.3 F 102 H 18 141/85 97 07/06/17 10:31 98.3 F 07/06/17 08:10 98.5 F 96 18 130/76 98 07/05/17 22:47 98.4 F 95 18 119/73 99 Intake and Output 07/06/17 07/06/17 07/06/17 06:59 14:59 22:59 Intake Total 0 0 Balance 0 0 Intake: Oral 0 0 Other: # Emeses 1 Weight 76.5 kg Pleasant 32-year-old woman with had recent emesis, mildly obese HEENT: Anicteric conjunctiva are pink and moist nasal mucosa grossly intact without significant lesions, there is no thrush. Neck: The neck is supple without significant lymphadenopathy or thyromegaly. Lungs: Good bilateral air entry without significant crackles or wheezing. There is no significant bronchial sounds. There is no egophony or dullness. Heart: Regular rate and rhythm with an audible S1-S2, no S3 no S4. There is no significant murmur click or rub, PMI was nondisplaced. Abdomen: Positive bowel sounds soft generalized tenderness without palpable masses or organomegaly. There was no guarding or rebound. Extremities: The upper extremities have excellent pulses they are symmetric, no significant petechiae or telangiectasia. No splinter hemorrhages were noted. The lower extremities are free from significant edema. The peripheral pulses were 2+ and symmetric. Neuro: Awake alert oriented to person place and time. There are no acute new gross focal sensory motor deficits. Results CBC & Chem 7: 07/05/17 06:52 07/05/17 06:52 Labs: Microbiology - Last 24 Hours (Table) 07/05/17 11:20 Stool Culture - Preliminary Stool Mariela albicans 07/01/17 23:21 Blood Culture - Preliminary Blood No Growth after 96 hours 07/01/17 22:36 Blood Culture - Preliminary Blood No Growth after 96 hours 06/29/17 20:26 Blood Culture - Final Blood No Growth after 144 hours 07/05/17 11:20 Stool for WBCs - Final Stool Laboratory Results WBC 8.1 k/uL (3.8-10.6) 07/05/17 06:52 RBC 4.00 m/uL (3.80-5.40) 07/05/17 06:52 Hgb 12.3 gm/dL (11.4-16.0) 07/05/17 06:52 Hct 35.6 % (34.0-46.0) 07/05/17 06:52 MCV 89.1 fL (80.0-100.0) 07/05/17 06:52 MCH 30.7 pg (25.0-35.0) 07/05/17 06:52 MCHC 34.4 g/dL (31.0-37.0) 07/05/17 06:52 RDW 13.0 % (11.5-15.5) 07/05/17 06:52 Plt Count 236 k/uL (150-450) 07/05/17 06:52 Neutrophils % 73 % 07/05/17 06:52 Lymphocytes % 18 % 07/05/17 06:52 Monocytes % 5 % 07/05/17 06:52 Eosinophils % 2 % 07/05/17 06:52 Basophils % 0 % 07/05/17 06:52 Neutrophils # 5.9 k/uL (1.3-7.7) 07/05/17 06:52 Lymphocytes # 1.4 k/uL (1.0-4.8) 07/05/17 06:52 Monocytes # 0.4 k/uL (0-1.0) 07/05/17 06:52 Eosinophils # 0.1 k/uL (0-0.7) 07/05/17 06:52 Basophils # 0.0 k/uL (0-0.2) 07/05/17 06:52 D-Dimer 0.39 mg/L FEU (<0.60) 07/05/17 14:18 Sodium 140 mmol/L (137-145) 07/05/17 06:52 Potassium 3.3 mmol/L (3.5-5.1) L 07/05/17 06:52 Chloride 104 mmol/L (98-107) 07/05/17 06:52 Carbon Dioxide 23 mmol/L (22-30) 07/05/17 06:52 Anion Gap 13 mmol/L 07/05/17 06:52 BUN 6 mg/dL (7-17) L 07/05/17 06:52 Creatinine 0.51 mg/dL (0.52-1.04) L 07/05/17 06:52 Est GFR (CKD-EPI)AfAm >90 (>60 ml/min/1.73 sqM) 07/05/17 06:52 Est GFR (CKD-EPI)NonAf >90 (>60 ml/min/1.73 sqM) 07/05/17 06:52 Glucose 95 mg/dL (74-99) 07/05/17 06:52 Lactic Ac Sepsis Rflx Y 06/29/17 20:53 Plasma Lactic Acid Ramos 1.0 mmol/L (0.7-2.0) 06/30/17 00:11 Calcium 8.8 mg/dL (8.4-10.2) 07/05/17 06:52 Total Bilirubin 0.4 mg/dL (0.2-1.3) 07/02/17 09:09 AST 19 U/L (14-36) 07/02/17 09:09 ALT 16 U/L (9-52) 07/02/17 09:09 Alkaline Phosphatase 33 U/L (38-126) L 07/02/17 09:09 Total Protein 6.0 g/dL (6.3-8.2) L 07/02/17 09:09 Albumin 3.7 g/dL (3.5-5.0) 07/02/17 09:09 Amylase 48 U/L (30-110) 06/29/17 20:26 Lipase 68 U/L (23-300) 06/29/17 20:26 HCG, Qual Not Detected 07/02/17 09:09 Urine Color Light Yellow 07/05/17 12:40 Urine Appearance Clear (Clear) 07/05/17 12:40 Urine pH 7.5 (5.0-8.0) 07/05/17 12:40 Ur Specific [place] 1.009 (1.001-1.035) 07/05/17 12:40 Urine Protein Negative (Negative) 07/05/17 12:40 Urine Glucose (UA) Negative (Negative) 07/05/17 12:40 Urine Ketones Negative (Negative) 07/05/17 12:40 Urine Blood Trace (Negative) H 07/05/17 12:40 Urine Nitrite Negative (Negative) 07/05/17 12:40 Urine Bilirubin Negative (Negative) 07/05/17 12:40 Urine Urobilinogen <2.0 mg/dL (<2.0) 07/05/17 12:40 Ur Leukocyte Esterase Negative (Negative) 07/05/17 12:40 Urine RBC 1 /hpf (0-5) 07/05/17 12:40 Urine WBC 1 /hpf (0-5) 07/05/17 12:40 Ur Squamous Epith Cells <1 /hpf (0-4) 07/05/17 12:40 Urine Mucus Rare /hpf (None) H 07/05/17 12:40 Urine HCG, Qual Not Detected (Not Detectd) 06/29/17 20:26 Stool Giardia Source Stool 07/05/17 11:20 Stl Giardia Antigen Negative (Negative) 07/05/17 11:20 C. 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 Over the last 24 hours fevers have started to improve but she still feels poorly. She's had episodes where leashes got a few hours without nausea and emesis, most recently with Phenergan. Zofran was not helping greatly. At this time it's not clear the etiology of her nausea and emesis. She did have fever. Viral gastroenteritis is of concern. Overall also evaluate for the possibility of systemic infection. Terrell-Valero and CMV titers will be obtained. 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 She has multiple cats including an animal it's been with for 4 months will check toxoplasma titers. Stool studies are pending but C. diff is negative so far. Stool culture is pending and that she does have exposure to a amphibian and they do carry Salmonella commonly. Attempt for intravenous erythromycin to help with her significant nausea and emesis was attempted but not available. The persistence of her symptoms will attempt a scopolamine patch since erythromycin is not available. For discomforts she has already had a 5 day course of Toradol, consequently acetaminophen and Motrin are being utilized for now. Current Visit: Yes Status: Acute Code(s): R11.2 - NAUSEA WITH VOMITING, UNSPECIFIED SNOMED Code(s): 426259244
[2017-07-06] MEDS ORDERED: SCOPOLAMINE 1.5MG/72HR PATCH TRANSDERM STA (21:33)
[2017-07-07 01:23] LABS: HIV AB P24 Non-Reactive (Non-Reactive); HIV P24 AG Non-Reactive (Non-Reactive)
[2017-07-07] MEDS: SODIUM CHLORIDE 0.9% 1,000 ML IV SCH (01:40)
[2017-07-07 02:50] LABS: Hepatitis A Antibody IgM Non-Reactive (Non-Reactive); Hepatitis C IgG Antibody Non-Reactive (Non-Reactive)
[2017-07-07] MEDS: LEVOTHYROXINE 75 MCG TAB PO SCH (06:15)
[2017-07-07] MEDS: PANTOPRAZOLE 40 MG/10 ML VIAL IVP SCH (08:19)
[2017-07-07] MEDS: MODAFINIL 200 MG TAB PO SCH (08:19)
--- NOTE | 2017-07-07 09:25 | P.PN ---
Subjective Progress Note Date: 07/07/17 Principal diagnosis: Nausea vomiting Nausea vomiting much improved. Tolerating regular diet. Scopolamine patch applied yesterday. Viral studies unremarkable. Objective - Vital Signs Vital signs: Vital Signs Temp 98.1 F 07/07/17 00:00 Pulse 86 07/07/17 00:00 Resp 16 07/07/17 00:00 BP 116/69 07/07/17 00:00 Pulse Ox 99 07/06/17 20:23 Intake & Output 07/06/17 07/07/17 07/07/17 18:59 06:59 18:59 Intake Total 0 Balance 0 Weight 76.5 kg Intake: Oral 0 Other: Voiding Method Toilet # Voids 1 - Exam General appearance: The patient is alert, oriented, in no acute distress. HET: Head is normocephalic and atraumatic. Pupils are equal and reactive. Oropharynx is clear without lesions. Neck: Supple without lymphadenopathy. Trachea midline. Heart: S1 S2. Regular rate and rhythm. Lungs: No crackles or wheezes are heard. Abdomen: Soft, nontender, nondistended with bowel sounds. No peritoneal signs. No palpable organomegaly or masses. Extremities: Normal skin color and turgor. No cyanosis, rash, ulceration, clubbing, or edema. Radial and pedal pulses are 2/4 bilaterally. Neurological: No focal deficits. Strength and sensation are grossly intact. - Labs CBC & Chem 7: 07/05/17 06:52 07/05/17 06:52 Labs: Microbiology - Last 24 Hours (Table) 07/01/17 23:21 Blood Culture - Preliminary Blood No Growth after 120 hours 07/01/17 22:36 Blood Culture - Preliminary Blood No Growth after 120 hours 07/05/17 11:20 Stool Culture - Preliminary Stool Mariela albicans Assessment and Plan (1) Intractable nausea and vomiting Narrative/Plan: Possible viral syndrome possible viral gastroenteritis Current Visit: Yes Status: Acute Code(s): R11.2 - NAUSEA WITH VOMITING, UNSPECIFIED SNOMED Code(s): 032234511 Plan: 1. Continue antinausea medications scopolamine patch. Discharge per medicine and infectious disease. Inpatient endoscopic exam not planned at this time. Assessment and plan a care discussed with Dr. Jenkins
[2017-07-07 13:12] VITALS: BP 139/82; PULSE 105; RESP 18; TEMP 98.2
--- NOTE | 2017-07-07 13:54 | P.DS ---
Providers Date of admission: 06/29/17 22:35 Attending physician: Pietro Moreno Consults: 07/05/17 20:48 Consult Physician Routine Consulting Provider: Marlon Vicente Consult Reason/Comments: Infection, fever Do you want consulting provider notified?: Already Contacted Primary care physician: Pietro Moreno - Discharge Diagnosis(es) (1) Intractable nausea and vomiting Current Visit: Yes Status: Acute (2) Anxiety Current Visit: No Status: Acute (3) Pyelonephritis Current Visit: No Status: Acute Hospital Course: This is discharge summary 32-year-old white female essentially admitted for pyelonephritis. She has had a lengthy course secondary to severe symptomatic nausea vomiting with body aches. She is unable to tolerate diet for several days. This was slowly treated. Zofran and Phenergan did not help the patient at first, multiple consultations including GI and infectious disease were noted. Scopolamine patch was started and this did help relieve the patient's symptoms. She has been on antibiotic for about a week IV and doing quite well. She will be discharged in stable condition to follow-up with me in about 1 week. Patient Condition at Discharge: Good Plan - Discharge Summary Discharge Rx Participant: Yes New Discharge Prescriptions: New Acetaminophen Tab [Tylenol] 650 mg PO Q6HR PRN tab PRN Reason: Mild Pain Or Fever > 100.5 Ibuprofen [Motrin] 600 mg PO Q6HR PRN tab PRN Reason: fever Scopolamine 1.5MG/72Hr Patch [TransDerm Scop] 1 patch TRANSDERM Q72H #3 patch Continue Levothyroxine Sodium [Synthroid] 75 mcg PO DAILY ALPRAZolam [Xanax] 0.25 mg PO Q8HR PRN PRN Reason: Anxiety Modafinil [Provigil] 400 mg PO DAILY Discharge Medication List ALPRAZolam [Xanax] 0.25 mg PO Q8HR PRN 04/30/14 [History] Levothyroxine Sodium [Synthroid] 75 mcg PO DAILY 04/30/14 [History] Modafinil [Provigil] 400 mg PO DAILY 11/10/14 [History] Acetaminophen Tab [Tylenol] 650 mg PO Q6HR PRN tab 07/07/17 [Rx] Ibuprofen [Motrin] 600 mg PO Q6HR PRN tab 07/07/17 [Rx] Scopolamine 1.5MG/72Hr Patch [TransDerm Scop] 1 patch TRANSDERM Q72H #3 patch [Rx] Follow up Appointment(s)/Referral(s): Pietro Moreno MD [Primary Care Provider] - 1 Week Patient Instructions/Handouts: Urinary Tract Infection in Women (DC) Activity/Diet/Wound Care/Special Instructions: Regular diet. Activity as tolerated. Discharge Disposition: HOME SELF-CARE
--- NOTE | 2017-07-07 22:32 | P.PN ---
Subjective Progress Note Date: 07/07/17 32-year-old female with hypothyroidism presents to Hospital feeling very poorly for several days before her admission. She started to have abdominal pain associated with nausea and emesis. She also was having fevers multiple times throughout the day associated with chills. She was not able to keep down medications and fluids and nutrition and constantly did present to the emergency center. Was treated and released. It within a day was much worse and then was admitted to hospital with concerns to underlying sepsis and gastroenteritis because of her ongoing nausea and emesis. She has a history of prior pyelonephritis more than a year ago. The patient relates that she lives with her boyfriend and child and they have been well. No one else has been ill in her home setting. There are several animals including dogs cats and a amphibian none of them are new, and she claims to take his ever had difficulties with the tank water. Since her hospitalization she continues to feel poorly. Fortunately her fevers started to improve a bit but continues to have ongoing. Nausea and emesis and just does not feel well. Within is having some abdominal discomfort. She's also had some headache. 07/07/2017 patient is showing some improvement. Continues to have some fatigue. However with a scopolamine patch for nausea and emesis have resolved. Her appetite is not excellent but she definitely feels better. On any dizziness he other any acute difficulties. Patient had initiation of further workup this far shows evidence of stool culture negative, C. diff is negative, CMV is negative, HIV is negative, hepatitis A, B, and C are negative and has evidence of excellent immunity to hepatitis B. Objective - Vital Signs Vital signs: Vital Signs Temp 98.2 F 07/07/17 13:11 Pulse 105 H 07/07/17 13:11 Resp 18 07/07/17 13:11 BP 139/82 07/07/17 13:11 Pulse Ox 98 07/07/17 13:11 Intake & Output 07/07/17 07/07/17 07/08/17 06:59 18:59 06:59 Intake Total 1500 Balance 1500 Intake: Oral 1500 Other: Voiding Method Toilet Toilet # Voids 1 1 - Exam Pleasant 32-year-old woman feeling much better today HEENT: Anicteric conjunctiva are pink and moist nasal mucosa grossly intact without significant lesions, there is no thrush. Neck: The neck is supple without significant lymphadenopathy or thyromegaly. Lungs: Good bilateral air entry without significant crackles or wheezing. There is no significant bronchial sounds. There is no egophony or dullness. Heart: Regular rate and rhythm with an audible S1-S2, no S3 no S4. There is no significant murmur click or rub, PMI was nondisplaced. Abdomen: Positive bowel sounds soft generalized tenderness without palpable masses or organomegaly. There was no guarding or rebound. Extremities: The upper extremities have excellent pulses they are symmetric, no significant petechiae or telangiectasia. No splinter hemorrhages were noted. The lower extremities are free from significant edema. The peripheral pulses were 2+ and symmetric. Neuro: Awake alert oriented to person place and time. There are no acute new gross focal sensory motor deficits. - Labs CBC & Chem 7: 07/05/17 06:52 07/05/17 06:52 Labs: Abnormal Lab Results - Last 24 Hours (Table) 07/06/17 Range/Units 18:13 Hep Bs Antibody Reactive H (Non-Reactive) Microbiology - Last 24 Hours (Table) 07/01/17 23:21 Blood Culture - Preliminary Blood No Growth after 120 hours 07/01/17 22:36 Blood Culture - Preliminary Blood No Growth after 120 hours 07/05/17 11:20 Stool Culture - Preliminary Stool Mariela albicans Laboratory Results WBC 8.1 k/uL (3.8-10.6) 07/05/17 06:52 RBC 4.00 m/uL (3.80-5.40) 07/05/17 06:52 Hgb 12.3 gm/dL (11.4-16.0) 07/05/17 06:52 Hct 35.6 % (34.0-46.0) 07/05/17 06:52 MCV 89.1 fL (80.0-100.0) 07/05/17 06:52 MCH 30.7 pg (25.0-35.0) 07/05/17 06:52 MCHC 34.4 g/dL (31.0-37.0) 07/05/17 06:52 RDW 13.0 % (11.5-15.5) 07/05/17 06:52 Plt Count 236 k/uL (150-450) 07/05/17 06:52 Neutrophils % 73 % 07/05/17 06:52 Lymphocytes % 18 % 07/05/17 06:52 Monocytes % 5 % 07/05/17 06:52 Eosinophils % 2 % 07/05/17 06:52 Basophils % 0 % 07/05/17 06:52 Neutrophils # 5.9 k/uL (1.3-7.7) 07/05/17 06:52 Lymphocytes # 1.4 k/uL (1.0-4.8) 07/05/17 06:52 Monocytes # 0.4 k/uL (0-1.0) 07/05/17 06:52 Eosinophils # 0.1 k/uL (0-0.7) 07/05/17 06:52 Basophils # 0.0 k/uL (0-0.2) 07/05/17 06:52 D-Dimer 0.39 mg/L FEU (<0.60) 07/05/17 14:18 Sodium 140 mmol/L (137-145) 07/05/17 06:52 Potassium 3.3 mmol/L (3.5-5.1) L 07/05/17 06:52 Chloride 104 mmol/L (98-107) 07/05/17 06:52 Carbon Dioxide 23 mmol/L (22-30) 07/05/17 06:52 Anion Gap 13 mmol/L 07/05/17 06:52 BUN 6 mg/dL (7-17) L 07/05/17 06:52 Creatinine 0.51 mg/dL (0.52-1.04) L 07/05/17 06:52 Est GFR (CKD-EPI)AfAm >90 (>60 ml/min/1.73 sqM) 07/05/17 06:52 Est GFR (CKD-EPI)NonAf >90 (>60 ml/min/1.73 sqM) 07/05/17 06:52 Glucose 95 mg/dL (74-99) 07/05/17 06:52 Lactic Ac Sepsis Rflx Y 06/29/17 20:53 Plasma Lactic Acid Ramos 1.0 mmol/L (0.7-2.0) 06/30/17 00:11 Calcium 8.8 mg/dL (8.4-10.2) 07/05/17 06:52 Total Bilirubin 0.4 mg/dL (0.2-1.3) 07/02/17 09:09 AST 19 U/L (14-36) 07/02/17 09:09 ALT 16 U/L (9-52) 07/02/17 09:09 Alkaline Phosphatase 33 U/L (38-126) L 07/02/17 09:09 Total Protein 6.0 g/dL (6.3-8.2) L 07/02/17 09:09 Albumin 3.7 g/dL (3.5-5.0) 07/02/17 09:09 Amylase 48 U/L (30-110) 06/29/17 20:26 Lipase 68 U/L (23-300) 06/29/17 20:26 HCG, Qual Not Detected 07/02/17 09:09 Urine Color Light Yellow 07/05/17 12:40 Urine Appearance Clear (Clear) 07/05/17 12:40 Urine pH 7.5 (5.0-8.0) 07/05/17 12:40 Ur Specific Constable 1.009 (1.001-1.035) 07/05/17 12:40 Urine Protein Negative (Negative) 07/05/17 12:40 Urine Glucose (UA) Negative (Negative) 07/05/17 12:40 Urine Ketones Negative (Negative) 07/05/17 12:40 Urine Blood Trace (Negative) H 07/05/17 12:40 Urine Nitrite Negative (Negative) 07/05/17 12:40 Urine Bilirubin Negative (Negative) 07/05/17 12:40 Urine Urobilinogen <2.0 mg/dL (<2.0) 07/05/17 12:40 Ur Leukocyte Esterase Negative (Negative) 07/05/17 12:40 Urine RBC 1 /hpf (0-5) 07/05/17 12:40 Urine WBC 1 /hpf (0-5) 07/05/17 12:40 Ur Squamous Epith Cells <1 /hpf (0-4) 07/05/17 12:40 Urine Mucus Rare /hpf (None) H 07/05/17 12:40 Urine HCG, Qual Not Detected (Not Detectd) 06/29/17 20:26 Stool Giardia Source Stool 07/05/17 11:20 Stl Giardia Antigen Negative (Negative) 07/05/17 11:20 C. difficile (EIA) Intrp Negative (Negative) 07/05/17 11:20 CMV IgG Ab Non-Reactive (Non-Reactive) 07/06/17 18:13 CMV IgM Ab Non-Reactive (Non-Reactive) 07/06/17 18:13 Hepatitis A IgM Ab Non-Reactive (Non-Reactive) 07/06/17 18:13 Hep Bs Antigen Non-Reactive (Non-Reactive) 07/06/17 18:13 Hep Bs Antibody Reactive (Non-Reactive) H 07/06/17 18:13 Hep Bs Antibody, Quant 1000.0 mIU/mL 07/06/17 18:13 Hep C IgG Ab Non-Reactive (Non-Reactive) 07/06/17 18:13 HIV-1 Antibody Non-Reactive (Non-Reactive) 07/06/17 18:13 HIV Ag/Ab Interpret (()) 07/06/17 18:13 HIV p24 Antibody Non-Reactive (Non-Reactive) 07/06/17 18:13 HIV-2 Antibody Non-Reactive (Non-Reactive) 07/06/17 18:13 HIV P24 Antigen Non-Reactive (Non-Reactive) 07/06/17 18:13 Microbiology 07/01/17 23:21 Blood Blood Culture - Preliminary No Growth after 120 hours 07/01/17 22:36 Blood Blood Culture - Preliminary No Growth after 120 hours 07/05/17 11:20 Stool Stool Culture - Preliminary Mariela albicans 06/29/17 20:26 Blood Blood Culture - Final No Growth after 144 hours 07/05/17 11:20 Stool Stool for WBCs - Final Assessment and Plan (1) Intractable nausea and vomiting Narrative/Plan: Pleasant 32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 Over the last 24 hours fevers have started to improve but she still feels poorly. She's had episodes where leashes got a few hours without nausea and emesis, most recently with Phenergan. Zofran was not helping greatly. At this time it's not clear the etiology of her nausea and emesis. She did have fever. Viral gastroenteritis is of concern. Overall also evaluate for the possibility of systemic infection. Terrell-Valero and CMV titers will be obtained. 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 She has multiple cats including an animal it's been with for 4 months will check toxoplasma titers. Stool studies are pending but C. diff is negative so far. Stool culture is pending and that she does have exposure to a amphibian and they do carry Salmonella commonly. Attempt for intravenous erythromycin to help with her significant nausea and emesis was attempted but not available. The persistence of her symptoms will attempt a scopolamine patch since erythromycin is not available. For discomforts she has already had a 5 day course of Toradol, consequently acetaminophen and Motrin are being utilized for now. 07/07/2017 reveals patient to be doing considerably better this morning. She's been able to eat without significant nausea or emesis. She feels considerably better today. Has had a good response to scopolamine therapy. Should be continued for a week after discharge with a slow taper in the last patch. Contact the office if nausea has not resolved. Viral infection possible EBV status still pending all others negative at this time. Status: Acute Code(s): R11.2 - NAUSEA WITH VOMITING, UNSPECIFIED SNOMED Code (s): 357132139
[2017-07-08 06:21] LABS: Toxoplasma Antibody (IgG) <3.0 IU/mL (<7.2); Toxoplasma Antibody (IgM) <3.0 AU/mL (<8.0)
[2017-07-08 07:12] LABS: EBV - EA (IgG) <5.0 U/mL (<9.0)
== END 2017-07-07 14:39 | disposition home or self-care (01) | DRG 690 ==
LOC: EC 18:29 → 4MS4W 22:35 → 6PED 06-30 16:20
PROVIDERS: ADMIT Family Medicine; ATTEND Family Medicine
DX: N10 Acute pyelonephritis (principal); E87.2 Acidosis; G40.909 Epilepsy, unspecified, not intractable, without status epilepticus; E66.9 Obesity, unspecified; F41.9 Anxiety disorder, unspecified; E03.9 Hypothyroidism, unspecified; G47.419 Narcolepsy without cataplexy; A08.4 Viral intestinal infection, unspecified; Z87.891 Personal history of nicotine dependence; Z79.890 Hormone replacement therapy; Z79.899 Other long term (current) drug therapy; Z88.2 Allergy status to sulfonamides; Z68.31 Body mass index [BMI] 31.0-31.9, adult
CPT/HCPCS: 36415; 70450; 71045; 71046; 74177; 80048; 80053; 81001; 81003; 81025; 82150; 83605; 83690; 84703; 85025; 85027; 85379; 86644; 86645; 86663; 86664; 86665; 86706; 86709; 86777; 86778; 86803; 87040; 87045; 87046; 87324; 87329; 87340; 87390; 89055; 96361; 96374; 96375; 99285

== ENCOUNTER 2017-07-23 07:16 | Day surgery (SDC) | payer MEDICAID ==
[2017-07-21 12:17] VITALS: BMI 30.2
[~2017-07-23 07:16] MED LIST: LACTATED RINGERS 1,000 ML IV SCH
[2017-07-23 07:53] VITALS: TEMP 98.3
[2017-07-23] MEDS ORDERED: LIDOCAINE 1% 20 ML VIAL (10MG/ML) FOR IV START INTRADERMA ONE (07:54)
[2017-07-23] MEDS ORDERED: PROPOFOL 10 MG/ML 20 ML VIAL IV ONE (08:01)
[2017-07-23] MEDS ORDERED: MIDAZOLAM 2 MG/2 ML VIAL ONE (08:01)
[2017-07-23] MEDS ORDERED: ONDANSETRON 4 MG/2 ML VIAL ONE (08:01)
[2017-07-23] MEDS ORDERED: LIDOCAINE 1% INJ 10MG/ML (20 ML MDV) ONE (08:01)
--- NOTE | 2017-07-23 08:03 | P.GSHP ---
History of Present Illness H&P Date: 07/23/17 Chief Complaint: GERD This is a 32-year-old female who presents today for EGD. She's had issues with GERD. Past Medical History Past Medical History: GERD/Reflux, Thyroid Disorder Additional Past Medical History / Comment(s): narcoplepsy, MTHFR, migraines, nausea/vomiting for past month History of Any Multi-Drug Resistant Organisms: None Reported Past Surgical History: Adenoidectomy, Tonsillectomy Additional Past Surgical History / Comment(s): stone removal from salivary gland , oral surgery Past Anesthesia/Blood Transfusion Reactions: Motion Sickness, Postoperative Nausea & Vomiting (PONV) Additional Past Anesthesia/Blood Transfusion Reaction / Comment(s): never had blood transfusion Past Psychological History: No Psychological Hx Reported Additional Psychological History / Comment(s): With her boyfriend and her son. 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 No international travel. No new animals as noted in the HPI. No recreational drug use. No experience Smoking Status: Former smoker Past Alcohol Use History: Occasional Additional Past Alcohol Use History / Comment(s): quit smoking 10 yrs ago, smoked for 3-4 yrs, < 1PPD Past Drug Use History: None Reported - Past Family History Father Family Medical History: Diabetes Mellitus, Hyperlipidemia, Hypertension Additional Family Medical History / Comment(s): bipass surgery Mother Family Medical History: No Reported History Medications and Allergies Home Medications Medication Instructions Recorded Confirmed Type ALPRAZolam [Xanax] 0.25 mg PO Q8HR PRN 04/30/14 07/21/17 History Levothyroxine Sodium [Synthroid] 75 mcg PO DAILY 04/30/14 07/21/17 History Modafinil [Provigil] 400 mg PO DAILY 11/10/14 07/21/17 History Allergies Allergy/AdvReac Type Severity Reaction Status Date / Time Sulfa (Sulfonamide Allergy Rash/Hives Verified 07/21/17 12:09 Antibiotics) Surgical - Exam Vital Signs Temp Pulse Resp BP 98.3 F 91 18 111/77 07/23/17 07:51 07/23/17 07:51 07/23/17 07:51 07/23/17 07:51 - General well developed, no distress - Eyes PERRL - ENT normal pinna - Neck no masses - Respiratory normal expansion - Cardiovascular Rhythm: regular - Abdomen Abdomen: soft, non tender Assessment and Plan Assessment: GERD. We'll perform EGD.
--- NOTE | 2017-07-23 08:14 | P.OP ---
Date of Procedure: 07/23/17 Preoperative Diagnosis: GERD Postoperative Diagnosis: Mild antral gastritis No evidence of hiatal hernia Mild esophagitis Procedure(s) Performed: EGD Anesthesia: MAC Surgeon: Dung Oneil Pathology: other (Antrum, esophagus) Condition: stable Disposition: PACU Description of Procedure: The patient's placed on the endoscopy table in the lateral position. She received IV sedation. The gastroscope was placed oropharynx passed in the esophagus and into the stomach. The scope was then placed through the pylorus. The first and second portion of the duodenum appeared normal. The scope was then brought back the antrum and this appeared mildly inflamed. A biopsies was performed. The scope was then retroflexed and the remainder of the stomach appeared normal. There was no significant hiatal hernia. The GE junction was at 40 cm. The distal esophagus appeared mildly inflamed a biopsies performed. The proximal esophagus appeared normal. Scope was withdrawn from patient. Due to the patient's symptoms and her minimal findings on EGD she was scheduled for HIDA scan.
[2017-07-23 08:49] VITALS: RESP 16
[2017-07-23] MEDS ORDERED: ONDANSETRON 4 MG/2 ML VIAL IVP ONE (08:59)
[2017-07-23 09:01] VITALS: BP 144/90; PULSE 71
--- NOTE | 2017-07-23 12:34 | NM ---
EXAMINATION TYPE: NM hepatobiliary w CCK DATE OF EXAM: 07/23/2017 COMPARISON: CT abdomen pelvis 06/29/2017 HISTORY: Gastroesophageal reflux disease, indigestion TECHNIQUE: After the intravenous administration of 5.25 mCi Tc 99m Mebrofenin hepatobiliary scintigra phy is performed. Immediate images post injection. FINDINGS: There is satisfactory initial accumulation of tracer by the liver. The gallbladder is visualized wit hin 8 minutes. The small bowel activity is noted on delayed images. At one hour CCK was administere d, patient was injected with 1.5 mcg of Kinevac, and gallbladder ejection fraction is calculated at 9 5 %, elevated. Therefore there is no scintigraphic evidence of cystic or common bile duct obstructio n to suggest acute cholecystitis. IMPRESSION: Gallbladder ejection fraction is 95% no evidence of cystic duct obstruction
== END 2017-07-23 09:43 | disposition home or self-care (01) ==
LOC: ORWHC2ENDO 07:16
PROVIDERS: ATTEND Surgery
DX: K29.50 Unspecified chronic gastritis without bleeding (principal); K21.0 Gastro-esophageal reflux disease with esophagitis; E72.12 Methylenetetrahydrofolate reductase deficiency; E07.9 Disorder of thyroid, unspecified; G47.419 Narcolepsy without cataplexy; Z87.891 Personal history of nicotine dependence; Z88.2 Allergy status to sulfonamides; Z79.899 Other long term (current) drug therapy
CPT/HCPCS: 81025; 88305; 78227; 43239; A9537; J2250; J2405; J2805; J2001; J2704

== ENCOUNTER 2017-08-06 06:49 | Day surgery (SDC) | payer MEDICAID ==
[2017-07-31 09:09] VITALS: BMI 30.2
[~2017-08-06 06:49] MED LIST changes: +DEXAMETHASONE SOD PHOSPHATE 10 MG/ML 1 ML VIAL IV ONE; +HEPARIN SODIUM,PORCINE 5,000 UNIT/ML 1 ML VIAL SQ ONE; -LACTATED RINGERS 1,000 ML IV SCH; +LIDOCAINE 1% 20 ML VIAL (10MG/ML) FOR IV START INTRADERMA PRN; +MIDAZOLAM 2 MG/2 ML VIAL IV PRN; +SCOPOLAMINE 1.5MG/72HR PATCH TRANSDERM ONE; +ceFAZolin IN SWFI 2 GM/20 ML SYRINGE IVP ONE
[2017-08-06] MEDS: LACTATED RINGERS 1,000 ML IV SCH ×2 (07:38→11:07)
[2017-08-06] MEDS: ONDANSETRON 4 MG/2 ML VIAL IVP ONE ×2 (07:39→09:08)
--- NOTE | 2017-08-06 07:52 | P.GSHP ---
History of Present Illness H&P Date: 08/06/17 Chief Complaint: Right upper quadrant pain This is a 32-year-old female who presents today for laparoscopic cholecystectomy. Patient's had complaints of right upper quadrant pain. Recent HIDA scan shows abnormal ejection fraction consistent with biliary hyperkinesia's. Past Medical History Past Medical History: Blood Disorder, GERD/Reflux, Thyroid Disorder Additional Past Medical History / Comment(s): narcolepsy, MTHFR, migraines, nausea/vomiting for past month History of Any Multi-Drug Resistant Organisms: None Reported Past Surgical History: Adenoidectomy, Tonsillectomy Additional Past Surgical History / Comment(s): stone removal from salivary gland , oral surgery Past Anesthesia/Blood Transfusion Reactions: Motion Sickness, Postoperative Nausea & Vomiting (PONV) Additional Past Anesthesia/Blood Transfusion Reaction / Comment(s): never had blood transfusion Past Psychological History: No Psychological Hx Reported Additional Psychological History / Comment(s): No experience Smoking Status: Former smoker Past Alcohol Use History: Occasional Additional Past Alcohol Use History / Comment(s): quit smoking 10 yrs ago, smoked for 3-4 yrs, < 1PPD Past Drug Use History: None Reported - Past Family History Father Family Medical History: Diabetes Mellitus, Hyperlipidemia, Hypertension Additional Family Medical History / Comment(s): bypass surgery Mother Family Medical History: Hyperlipidemia, Hypertension Medications and Allergies Home Medications Medication Instructions Recorded Confirmed Type ALPRAZolam [Xanax] 0.25 mg PO Q8HR PRN 04/30/14 07/31/17 History Levothyroxine Sodium [Synthroid] 75 mcg PO DAILY 04/30/14 07/31/17 History Modafinil [Provigil] 400 mg PO DAILY 11/10/14 07/31/17 History Allergies Allergy/AdvReac Type Severity Reaction Status Date / Time Sulfa (Sulfonamide Allergy Rash/Hives Verified 07/31/17 09:03 Antibiotics) Surgical - Exam Vital Signs Temp Pulse Resp BP Pulse Ox 98.1 F 84 18 114/77 98 08/06/17 07:36 08/06/17 07:36 08/06/17 07:36 08/06/17 07:36 08/06/17 07:36 - General well developed, no distress - Eyes PERRL - ENT normal pinna - Neck no masses - Respiratory normal expansion - Cardiovascular Rhythm: regular - Abdomen Abdomen: soft, non tender Assessment and Plan Assessment: Right upper quadrant pain Chronic cholecystitis We will perform laparoscopic cholecystectomy
[2017-08-06] MEDS ORDERED: fentaNYL (PF) 50 MCG/ML 2 ML AMP ONE (07:54)
[2017-08-06] MEDS ORDERED: ROCURONIUM BROMIDE 10 MG/ML 10 ML VIAL IV ONE (07:54)
[2017-08-06] MEDS ORDERED: SUCCINYLCHOLINE CHLORIDE 100 MG/5 ML SYR IV ONE (07:54)
[2017-08-06] MEDS ORDERED: PROPOFOL 10 MG/ML 20 ML VIAL IV ONE (07:54)
[2017-08-06] MEDS ORDERED: MIDAZOLAM 2 MG/2 ML VIAL ONE (07:54)
[2017-08-06] MEDS ORDERED: LIDOCAINE 1% INJ 10MG/ML (20 ML MDV) ONE (07:54)
[2017-08-06] MEDS ORDERED: GLYCOPYRROLATE 0.2 MG/ML 2 ML VIAL ONE (07:54)
[2017-08-06] MEDS ORDERED: NEOSTIGMINE 1 MG/ML 10 ML VIAL ONE (07:54)
[2017-08-06] MEDS ORDERED: BUPIVACAINE (PF) 0.5% 30 ML VIAL SQ ONE (08:11)
[2017-08-06 09:08] VITALS: TEMP 97
[2017-08-06] MEDS ORDERED: METOCLOPRAMIDE 5 MG/ML 2 ML VIAL IVP ONE (09:17)
[2017-08-06] MEDS ORDERED: LACTATED RINGERS 1,000 ML IV ONE (09:21)
[2017-08-06] MEDS: fentaNYL (PF) 50 MCG/ML 2 ML AMP IV PRN ×2 (09:40→09:44)
--- NOTE | 2017-08-06 10:18 | P.OP ---
Date of Procedure: 08/06/17 Preoperative Diagnosis: Cholecystitis Postoperative Diagnosis: Cholecystitis Procedure(s) Performed: Laparoscopic cholecystectomy Anesthesia: DARIN Surgeon: Dung Oneil Estimated Blood Loss (ml): 5 Pathology: other (Gallbladder) Condition: stable Disposition: PACU Description of Procedure: The patient was placed on the operating table. The patient received a general endotracheal tube anesthesia. The patients abdomen was prepped and draped in the usual sterile fashion. Through an infraumbilical stab incision, the fascia of the anterior abdominal wall was grasped with a pair of Kochers and then the Veress needle was placed in the peritoneal cavity. Position of the Veress needle was confirmed with positive drop test. The abdomen was then insufflated. After adequate insufflation, the 10 mm trocar was placed in the peritoneal cavity. Following this the laparoscope was placed in the peritoneal cavity. The patient was placed in the head-up, right side up position and then a 5 mm trocar was placed in the right lateral and right subcostal position under direct visualization. A 8 mm trocar was placed in the epigastric position. The gallbladder was grasped in the fundus and infundibulum. Traction on the gallbladder was placed in the lateral and the cephalad positions. The triangle of Calot was visualized.. The cystic duct was bluntly dissected until the union of the cystic duct and common bile duct was seen. The cystic duct was then divided and sealed with the Harmonic scissors. A PDS Endoloop was then placed throughout the cystic duct stump. The cystic artery divided and sealed with the Harmonic scissors. The gallbladder was then removed from the liver bed using Harmonic scissors. The gallbladder was then extracted through the epigastric port site. Operative field was checked for any bleeding spots and Harmonic scissors was used to coagulate the liver bed. The abdomen was irrigated. The trocars were removed. The skin was closed using interrupted 3-0 Vicryl suture. Dermabond dressing were applied. The patient tolerated the procedure well.
[2017-08-06] MEDS ORDERED: PROMETHAZINE INJ 25 MG/ML 1 ML VIAL IM STA (10:45)
[2017-08-06] MEDS ORDERED: PROMETHAZINE INJ 25 MG/ML 1 ML VIAL IVPB ONE (10:54)
[2017-08-06 12:24] VITALS: PULSE 80; RESP 18
[2017-08-06 13:12] VITALS: BP 117/59
[2017-08-06] MEDS ORDERED: ACETAMINOPHEN TAB 325 MG TAB PO ONE (13:20)
== END 2017-08-06 14:00 | disposition home or self-care (01) ==
LOC: OR 06:49
PROVIDERS: ATTEND Surgery
DX: K81.1 Chronic cholecystitis (principal); K21.9 Gastro-esophageal reflux disease without esophagitis; E07.9 Disorder of thyroid, unspecified; G47.419 Narcolepsy without cataplexy; E72.12 Methylenetetrahydrofolate reductase deficiency; Z88.2 Allergy status to sulfonamides; Z79.890 Hormone replacement therapy; Z79.899 Other long term (current) drug therapy; Z87.891 Personal history of nicotine dependence; Z83.3 Family history of diabetes mellitus; Z82.49 Family history of ischemic heart disease and other diseases of the circulatory system
CPT/HCPCS: 47562; 81025; 88304; J2250; J1644; J1100; J2550; J2710; J2765; J2405; J2001; J3010; J0330; J2704; J0690

== ENCOUNTER → 2019-12-06 | Outpatient (CLI) | payer MEDICAID | END | disposition home or self-care (01) | LOC: LABWHC1 11:50 | PROVIDERS: ATTEND Pediatrics Pediatric Infectious Diseases | DX: Z03.818 Encounter for observation for suspected exposure to other biological agents ruled out (principal) | CPT/HCPCS: U0003; C9803 ==

== ENCOUNTER → 2020-04-27 | Outpatient (CLI) | payer MEDICAID ==
--- NOTE | 2020-04-27 16:55 | MR ---
EXAMINATION TYPE: MR shoulder LT wo con DATE OF EXAM: 04/27/2020 COMPARISON: None HISTORY: Left shoulder joint stiffness and pain TECHNIQUE: Multiplanar, multisequence imaging of the left shoulder is performed without contrast. FINDINGS: Rotator Cuff: No partial or complete tears are identified. No retraction is evident. Rotator cuff mus cles abnormal signal without fatty infiltration or atrophy. Acromioclavicular Joint: Acromioclavicular junction appears normal. There is marked downward sloping of the distal acromion which can contribute to impingement syndrome. Glenohumeral Joint: Intact Labrum: The labrum appears grossly intact given limitation of non-arthrogram study. Biceps Tendon: The long head of biceps is in normal location within bicipital groove. Bone marrow signal: No focal abnormal marrow signal is appreciated. Other: No additional significant abnormality is appreciated. IMPRESSION: 1. No suspicious acute changes to account for patient's pain. 2. 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
== END | disposition home or self-care (01) ==
LOC: RADMRIMAIN 12:45
PROVIDERS: ATTEND Family Medicine
DX: M25.812 Other specified joint disorders, left shoulder (principal)

== ENCOUNTER → 2020-07-16 | Outpatient (CLI) | payer MEDICAID ==
--- NOTE | 2020-07-18 15:26 | XR ---
Left knee HISTORY: Trauma and pain 3 views the left knee Bone mineralization, joint spaces and alignment are maintained. Suprapatellar increased density may b e indicative of joint effusion. No fracture or dislocation. IMPRESSION: Correlate to exclude joint effusion.
== END | disposition home or self-care (01) ==
LOC: RADXRMAIN 12:22
PROVIDERS: ATTEND Family Medicine
DX: M25.562 Pain in left knee (principal); S89.92XA Unspecified injury of left lower leg, initial encounter

== ENCOUNTER → 2020-07-19 | Outpatient (CLI) | payer MEDICAID ==
--- NOTE | 2020-07-19 12:48 | MR ---
EXAMINATION TYPE: MR knee LT wo con DATE OF EXAM: 07/19/2020 COMPARISON: Left knee x-ray 3 days ago HISTORY: LT KNEE pain and swelling, skateboarding injury TECHNIQUE: Multiplanar, multisequence imaging of the left knee is performed without IV contrast. FINDINGS: MEDIAL MENISCUS: Posterior horn posterior aspect of truncated appearance with abnormal irregular sign al extending to articular surface. Anterior horn is intact. LATERAL MENISCUS: Anterior and posterior horns are intact without tear. CRUCIATE LIGAMENTS: The posterior cruciate ligament is intact . Complete tear of the anterior cruciat e ligament from the proximal posterior distal humeral attachment. COLLATERAL LIGAMENTS: The medial collateral ligament and lateral collateral ligament complex are inta ct. Mild fluid signal surrounds medial collateral ligament. EXTENSOR MECHANISM: Visualized quadriceps and patellar tendons are intact. EFFUSION: Large suprapatellar joint effusion. POPLITEAL CYST: No popliteal/dunham cyst. TRICOMPARTMENT SPACES: No significant narrowing or spurring. CARTILAGE: Tricompartment articular cartilage preserved. BONE MARROW SIGNAL: Heterogeneous increased T2 signal involving the articular surface medial aspect d istal medial femoral condyle coronal image 24 reference and small focus posterior aspect of the media l tibial plateau, subtle 6 mm linear irregular T1 hypointense signal coronal image 24 noted. Addition al heterogeneous edema throughout the posterior aspect of the lateral tibial plateau and anterolatera l aspect of the lateral distal femur. OTHER: No additional significant abnormality is appreciated. IMPRESSION: 1. Complete ACL tear with associated osseous contusion injury. 2. Full-thickness tear posterior horn medial meniscus. 3. Mild MCL sprain injury. No tear evident. 4. Large suprapatellar joint effusion. 5. Incomplete subchondral nondisplaced fracture medial aspect medial tibial plateau with associated o sseous contusion injury.
== END | disposition home or self-care (01) ==
LOC: RADMRIMAIN 11:43
PROVIDERS: ATTEND Family Medicine
DX: S80.02XA Contusion of left knee, initial encounter (principal); S83.242A Other tear of medial meniscus, current injury, left knee, initial encounter; S82.135A Nondisplaced fracture of medial condyle of left tibia, initial encounter for closed fracture; Y93.51 Activity, roller skating (inline) and skateboarding

== ENCOUNTER 2020-08-22 08:11 | Day surgery (SDC) | payer MEDICAID ==
[2020-08-21 08:46] VITALS: BMI 29.8
--- NOTE | 2020-08-21 15:31 | HP ---
HISTORY AND PHYSICAL REASON FOR ADMISSION: Surgery scheduled for 08/22/2020. HISTORY OF PRESENT ILLNESS: Annabel Mansfield is a 35-year-old patient seen with left knee pain consistent with meniscal tear and ACL tear. We discussed options for treatment. She elected to proceed with left knee arthroscopy with partial meniscectomy, allograft ACL reconstruction. Consent was obtained. PAST MEDICAL HISTORY: Hypothyroidism. PAST SURGICAL HISTORY: Noncontributory. MEDICATIONS: Levothyroxine. ALLERGIES: NONE. SOCIAL HISTORY: She denies tobacco use. PHYSICAL EVALUATION OF THE LEFT KNEE: Range of motion is -7 to 75. Moderate effusion. Tenderness medial joint line. Positive medial Braulio's. +2 Kira. Pivot shift was positive. Distal neurovascular exam is intact. RADIOGRAPHS: Radiographs of the left knee revealed no osseous abnormality. Left knee MRI revealed ACL tear, medial meniscal tear and tibial plateau nondisplaced fracture. IMPRESSION: 1. Internal derangement of left knee with medial meniscal tear and ACL tear. 2. Hypothyroidism. PLAN: Left knee arthroscopy with allograft ACL reconstruction, partial meniscectomy and debridement. Surgery is scheduled for 08/22/2020. MMODL / IJN: [id number] /
[~2020-08-22 08:11] MED LIST changes: -DEXAMETHASONE SOD PHOSPHATE 10 MG/ML 1 ML VIAL IV ONE; +DEXAMETHASONE SOD PHOSPHATE 4 MG/ML 1 ML VIAL IV ONE; -HEPARIN SODIUM,PORCINE 5,000 UNIT/ML 1 ML VIAL SQ ONE; +HYDROmorphone 0.5 MG/0.5 ML SYRINGE IVP PRN; +LACTATED RINGERS 1,000 ML IV SCH; +LIDOCAINE 1% (10MG/ML) FOR IV START INTRADERMA PRN; -LIDOCAINE 1% 20 ML VIAL (10MG/ML) FOR IV START INTRADERMA PRN; -MIDAZOLAM 2 MG/2 ML VIAL IV PRN; +ONDANSETRON 4 MG/2 ML VIAL IVP ONE; -ceFAZolin IN SWFI 2 GM/20 ML SYRINGE IVP ONE
[2020-08-22] MEDS ORDERED: SUCCINYLCHOLINE CHLORIDE 100 MG/5 ML SYR IV ONE (09:10)
[2020-08-22] MEDS ORDERED: fentaNYL (PF) 50 MCG/ML 2 ML AMP ONE (09:10)
[2020-08-22] MEDS ORDERED: PROPOFOL 10 MG/ML 20 ML VIAL IV ONE (09:10)
[2020-08-22] MEDS ORDERED: LIDOCAINE 1% INJ 10MG/ML (20 ML MDV) ONE (09:10)
[2020-08-22] MEDS ORDERED: MIDAZOLAM 2 MG/2 ML VIAL ONE (09:10)
[2020-08-22] MEDS ORDERED: BUPIVACAINE (PF) 0.25% 30 ML VIAL INTRAARTIC ONE (10:42)
[2020-08-22 11:03] VITALS: TEMP 97.8
--- NOTE | 2020-08-22 11:10 | P.OP ---
Date of Procedure: 08/22/20 Preoperative Diagnosis: Internal derangement left knee Postoperative Diagnosis: 1. ACL tear left knee 2. Lateral meniscal tear left knee 3. 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 Reactive synovitis medial, lateral and suprapatellar compartments left knee Procedure(s) Performed: 1. Arthroscopic allograft ACL reconstruction left knee 2. Arthroscopic partial lateral meniscectomy left knee 3. Arthroscopic chondroplasty patella left knee 4. Arthroscopic partial synovectomy medial, lateral and suprapatellar compartments left knee Implants: 2Arthrex Endobuttons 14.75 Arthrex swivel lock anchor Anesthesia: DARIN local Surgeon: Boris Hernandez Assistant Professor Of Biology #1: Tim Batista Estimated Blood Loss (ml): 20 Pathology: none sent Condition: stable Disposition: PACU Indications for Procedure: 35-year-old patient seen with left knee ACL tear along with meniscal tear. We discussed treatment options. She elected to proceed with arthroscopy to include allograft ACL reconstruction. Operative Findings: see description of procedure Description of Procedure: Patient was taken to the operative suite. Patient underwent a general anesthetic by the department of anesthesia. Patient was given preoperative antibiotics. The left lower extremity was placed in a well-padded arthroscopic leg benson. The left leg was prepped and draped in the normal sterile orth opedic fashion. A lateral parapatellar and suprapatellar incision was made. Trochars were inserted. Arthroscopy was initiated. Suprapatellar pouch revealed diffuse thick reactive synovitis. The patellofemoral joint appeared to articulate congruently. There was grade 1/2 chondromalacia of the patella with some small osteochondral tears present. The scope was guided into the medial gutter. No loose bodies or plica were identified. The scope was then guided into the medial compartment. A medial parapatellar incision was made. Trocar inserted followed by probe. Medial meniscus was probed and found to be stable. There was some reactive synovitis anteriorly. There was no significant chondromalacia. Scope and probe were then guided into the intercondylar notch. There was a complete ACL tear present. The PCL was found to be intact. At this point Gerry SHAVER began preparing our allograft for implantation. I guided the scope back into the medial compartment. I introduced the motorized shaver and performed a partial synovectomy. There was good decompression of synovitis. The scope and probe were then guided into lateral compartment. There was a radial tear of the lateral meniscus along with the undersurface tear. There was no chondromalacia. There was some reactive synovitis anteriorly. I performed a partial lateral meniscectomy. I performed a partial synovectomy. I reintroduced the probe and noted good stability about the residual meniscus as well as good decompression of the synovitis. I guided the scope back into the intercondylar notch. I introduced a motorized shaver and debrided out the remnant ACL stump. I introduced a motorized bur and performed a notchplasty. At this point with the assistance of Gerry SHAVER I created a femoral tunnel and a tibial tunnel to accommodate our graft. We made sure that both tunnels were patent. We now brought the graft into the operative field. We now shuttled the femoral side of the graft into the femoral tunnel making sure we could visualize the Endobutton flipping. We now pulled the graft into the tunnel and it was stable. We now shuttled our tibial side of the graft into the tibial tunnel. We now fully extended the knee. We now secured our tibial 7 graft with an Endobutton. We did introduce a internal brace suture and that was secured with a 4.75 Arthrex swivel lock anchor. Upon introducing the anchor we had collapse of the actual anchor and it was removed. The eyelet was in the predrilled hole and it appeared to stabilize our internal brace nicely. We left that in place. Residual suture limbs were clipped. With the knee fully extended we again tension the femoral side of the graft and clipped the residual sutures. We now reintroduced the scope into the joint and noted excellent positioning of our ACL graft with good intraoperative stability as well as full extension with no impingement. I guided the scope back into the super compartment and performed a chondroplasty of the patella followed by partial synovectomy decompressing reactive synovitis. Shaver was removed. I removed all remaining instruments the joint. All the portal sites and mini medial proximal incision were repaired with nylon suture. I infiltrated the joint with quarter percent plain Marcaine. Sterile dressings were applied followed by an Fredo bandage and then the extremity was placed into a knee immobilizer. No tourniquet was utilized. The patient was awakened, transferred to a bed and taken to recovery stable satisfactory condition. Gerry SHAVER assisted in all aspects of the procedure.
[2020-08-22] MEDS ORDERED: MEPERIDINE 50 MG/ML SYRINGE IVP ONE (11:26)
[2020-08-22] MEDS ORDERED: ONDANSETRON 4 MG/2 ML VIAL ONE (11:56)
[2020-08-22] MEDS ORDERED: ONDANSETRON 4 MG/2 ML VIAL IVP ONE (12:03)
[2020-08-22] MEDS ORDERED: LACTATED RINGERS 1,000 ML IV ONE (13:50)
[2020-08-22] MEDS ORDERED: HYDROcodone/APAP 7.5-325MG 1 EACH TAB ONE (14:01)
[2020-08-22] MEDS ORDERED: HYDROcodone/APAP 7.5-325MG 1 EACH TAB PO ONE (14:05)
[2020-08-22 14:44] VITALS: BP 146/86; PULSE 90; RESP 16
== END 2020-08-22 15:00 | disposition home or self-care (01) ==
LOC: OR 08:11
PROVIDERS: ATTEND Orthopaedic Surgery
DX: S83.512A Sprain of anterior cruciate ligament of left knee, initial encounter (principal); S83.282A Other tear of lateral meniscus, current injury, left knee, initial encounter; M22.42 Chondromalacia patellae, left knee; M65.862 Other synovitis and tenosynovitis, left lower leg; E03.9 Hypothyroidism, unspecified; Z79.899 Other long term (current) drug therapy; G47.419 Narcolepsy without cataplexy
CPT/HCPCS: 81025; 29888; 29881; 29876; C1713 ×3; J2250; J1100; J2175; J0690; J2405; J2001; J3010; J0330; J2704; J1170

== ENCOUNTER 2021-01-20 08:34 | Emergency (ER) | payer MEDICAID ==
[2021-01-20] MEDS ORDERED: ACETAMINOPHEN TAB 500 MG TAB PO STA (10:07)
[2021-01-20] MEDS ORDERED: SODIUM CHLORIDE 0.9% 1,000 ML IV ONE (10:07)
[2021-01-20] MEDS ORDERED: KETOROLAC 15 MG/ML 1 ML VIAL IVP STA (10:07)
[2021-01-20] MEDS ORDERED: SODIUM CHLORIDE 0.9% 50 ML IVPB ONE (10:30)
--- NOTE | 2021-01-20 10:46 | XR ---
EXAMINATION TYPE: XR chest 2V DATE OF EXAM: 01/20/2021 COMPARISON: 07/04/2017 HISTORY: 35 years Female. STUDY INDICATION GIVEN: cough . TECHNIQUE: PA lateral chest radiographs IMPRESSION: Clear lungs and pleural spaces. Normal cardiomediastinal silhouette. Unremarkable osseous structures and upper abdomen. Essentially normal 2 view chest radiographs without significant change.
--- NOTE | 2021-01-20 10:58 | ED ---
URI HPI - General Chief Complaint: Upper Respiratory Infection Stated Complaint: Covid +, possible pneumonia Time Seen by Provider: 01/20/21 10:01 Source: patient, RN notes reviewed Mode of arrival: ambulatory Limitations: no limitations - History of Present Illness Initial Comments: This a 35-year-old female presents emergency from chief complaint of cough congestion bodies. Patient states symptoms started last few days. Patient states that she's had some COVID-19 exposure she did test positive for COVID-19 today. Patient states that she's had cough and congestion. 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 Patient states she has a slightly productive cough. No chest pain no palpitations - Related Data Home Medications Medication Instructions Recorded Confirmed ALPRAZolam [Xanax] 0.25 mg PO Q8HR PRN 04/30/14 01/20/21 Modafinil [Provigil] 400 mg PO DAILY 11/10/14 01/20/21 Allergies Allergy/AdvReac Type Severity Reaction Status Date / Time Sulfa (Sulfonamide Allergy Rash/Hives Verified 01/20/21 11:03 Antibiotics) Review of Systems ROS Statement: Those systems with pertinent positive or pertinent negative responses have been documented in the HPI. ROS Other: All systems not noted in ROS Statement are negative. Past Medical History Past Medical History: Blood Disorder, GERD/Reflux, Thyroid Disorder Additional Past Medical History / Comment(s): narcolepsy, MTHFR, migraines History of Any Multi-Drug Resistant Organisms: None Reported Past Surgical History: Adenoidectomy, Orthopedic Surgery, Tonsillectomy Additional Past Surgical History / Comment(s): stone removal from salivary gl and, oral surgery Past Anesthesia/Blood Transfusion Reactions: Motion Sickness, Postoperative Nausea & Vomiting (PONV) Additional Past Anesthesia/Blood Transfusion Reaction / Comment(s): never had blood transfusion Past Psychological History: No Psychological Hx Reported Smoking Status: Never smoker Past Alcohol Use History: Occasional Past Drug Use History: Marijuana - Past Family History Father Family Medical History: Diabetes Mellitus, Hyperlipidemia, Hypertension Additional Family Medical History / Comment(s): CABG Mother Family Medical History: Hyperlipidemia, Hypertension General Exam Limitations: no limitations General appearance: alert, in no apparent distress Head exam: Present: atraumatic, normocephalic, normal inspection Eye exam: Present: normal appearance, PERRL, EOMI. Absent: scleral icterus, conjunctival injection, periorbital swelling ENT exam: Present: normal exam, mucous membranes moist Neck exam: Present: normal inspection, full ROM. Absent: tenderness, meningismus, lymphadenopathy Respiratory exam: Present: normal lung sounds bilaterally. Absent: respiratory distress, wheezes, rales, rhonchi, stridor Cardiovascular Exam: Present: regular rate, normal rhythm, normal heart sounds. Absent: systolic murmur, diastolic murmur, rubs, gallop, clicks Course Vital Signs 01/20/21 01/20/21 08:41 11:12 Temperature 97.6 F 97.6 F Pulse Rate 110 H 101 H Respiratory 18 18 Rate Blood Pressure 127/81 121/61 O2 Sat by Pulse 98 98 Oximetry Medical Decision Making - Medical Decision Making Patient doesn't positive for COVID-19 she did receive monoclonal antibodies will be discharged in stable condition. - Lab Data Lab Results 01/20/21 Range/Units 11:11 Coronavirus (PCR) Detected A (Not Detectd) Disposition Clinical Impression: COVID-19 Disposition: HOME SELF-CARE Condition: Stable Instructions (If sedation given, give patient instructions): Coronavirus Disease 2019 (COVID-19) Additional Instructions: Please return to the Emergency Department if symptoms worsen or any other concerns. Is patient prescribed a controlled substance at d/c from ED?: No Referrals: Edwardo Shields DO [Primary Care Provider] - 1-2 days Time of Disposition: 12:12
[2021-01-20] MEDS ORDERED: BAMLANIVIMAB (EUA) 700 MG, ETESEVIMAB (EUA) 1,400 MG in SODIUM CHLORIDE 0.9% 50 ML IVPB ONE (11:00)
[2021-01-20 11:14] VITALS: BP 121/61
[2021-01-20 12:47] VITALS: PULSE 91; RESP 20; TEMP 98.4
== END 2021-01-20 12:47 | disposition home or self-care (01) ==
LOC: EC 08:34
DX: U07.1 COVID-19 (principal); Z88.2 Allergy status to sulfonamides
CPT/HCPCS: 87635; 71046; 99283; 96365; 96375; J1885; J3490

== ENCOUNTER → 2021-02-08 | Outpatient (CLI) | payer MEDICAID ==
--- NOTE | 2021-02-08 21:59 | MR ---
EXAMINATION TYPE: MR knee LT wo con DATE OF EXAM: 02/08/2021 COMPARISON: Plain film 01/29/2021, prior knee MRI 07/19/2020 HISTORY: Left knee pain, hx injury June 2020 and surgery July 2020. TECHNIQUE: Multiplanar, multisequence imaging of the left knee is performed without IV contrast. FINDINGS: Patient is status post anterior cruciate ligament repair. Susceptibility artifact is presen t due to patient's hardware. MEDIAL MENISCUS: Anterior and posterior horns are intact without tear. Small amount of fluid is prese nt along the undersurface of the posterior horn the medial meniscus LATERAL MENISCUS: Anterior and posterior horns are intact without tear. There is some fluid signal pr esent posterior to the posterior horn of the lateral meniscus, coronal image there is fluid signal al jamila the superior inferior margin of the posterior horn of the lateral meniscus CRUCIATE LIGAMENTS: Posterior cruciate ligament is intact, graft appears intact along the distributio n of the anterior cruciate ligament repair COLLATERAL LIGAMENTS: The medial collateral ligament and lateral collateral ligament complex are inta ct and unremarkable. EXTENSOR MECHANISM: Visualized quadriceps and patellar tendons are intact. EFFUSION: Small joint effusion is present POPLITEAL CYST: No popliteal/dunham cyst. TRICOMPARTMENT SPACES: Maintained CARTILAGE: Grade III chondromalacia suspected of the lateral femoral condyle, coronal image 19, sagit debora image 9 is an interval finding BONE MARROW SIGNAL: No focal abnormal marrow signal is appreciated. OTHER: Fluid is present along the musculature the proximal leg laterally. IMPRESSION: There is some focal chondromalacia along the lateral femoral condyle. Postop changes. There is a smal l joint effusion, additional nonspecific findings above.
== END | disposition home or self-care (01) ==
LOC: RADMRIMAIN 19:28
PROVIDERS: ATTEND Orthopaedic Surgery Sports Medicine
DX: M25.662 Stiffness of left knee, not elsewhere classified (principal); Z98.890 Other specified postprocedural states

== ENCOUNTER 2022-08-18 07:16 | Emergency (ER) | payer MEDICAID ==
[2022-08-18 07:24] VITALS: TEMP 97.7
[2022-08-18] MEDS ORDERED: SODIUM CHLORIDE 0.9% 2,000 ML IV STA (07:31)
[2022-08-18] MEDS ORDERED: ONDANSETRON 4 MG/2 ML VIAL IVP STA (07:31)
[2022-08-18] MEDS ORDERED: FAMOTIDINE 20 MG/2 ML VIAL IV STA (07:32)
--- NOTE | 2022-08-18 07:33 | ED ---
Nausea/Vomiting/Diarrhea HPI - General Chief complaint: Nausea/Vomiting/Diarrhea Stated complaint: VOMITING Time Seen by Provider: 08/18/22 07:26 Source: patient, RN notes reviewed Mode of arrival: ambulatory Limitations: no limitations - History of Present Illness Initial comments: This is a 37-year-old female who presents to the emergency department for nausea, vomiting, and diarrhea. States that this started 5 days ago. She's been unable to keep anything down. Unsure how many times she has thrown up. She has associated discomfort in her abdomen as a result of all the vomiting and describes it as a "bubbling" sensation. Unable localize the pain anywhere. She's had similar problems in the past, at one point this was related to her gallbladder, which was subsequently removed. At another point, this was around the time of her period, but it resolved on its own after about 3 days. Denies any fevers, chills, sick contacts, or eating any new foods. Also denies any recent antibiotic use. Denies any fevers, chills, sore throat, cough, dyspnea, chest pain, palpitations, back pain, or headaches. MD complaint: nausea, vomiting, diarrhea, abdominal pain Onset/Timin -: days(s) - Related Data Home Medications Medication Instructions Recorded Confirmed ALPRAZolam [Xanax] 0.25 mg PO Q8HR PRN 04/30/14 01/20/21 Modafinil [Provigil] 400 mg PO DAILY 11/10/14 01/20/21 Previous Rx's Medication Instructions Recorded Diphenox-Atrop 2.5-0.025 mg 1 - 2 tab PO QID PRN 3 Days #24 tab 08/18/22 [Lomotil] Metoclopramide [Reglan] 10 mg PO Q6H PRN #20 tab 08/18/22 Ondansetron Odt [Zofran Odt] 4 mg PO Q8HR PRN #20 tab 08/18/22 Allergies Allergy/AdvReac Type Severity Reaction Status Date / Time Sulfa (Sulfonamide Allergy Rash/Hives Verified 08/18/22 07:24 Antibiotics) Review of Systems ROS Statement: Those systems with pertinent positive or pertinent negative responses have been documented in the HPI. ROS Other: All systems not noted in ROS Statement are negative. Past Medical History Past Medical History: Blood Disorder, GERD/Reflux, Thyroid Disorder Additional Past Medical History / Comment(s): narcolepsy, MTHFR, migraines History of Any Multi-Drug Resistant Organisms: None Reported Past Surgical History: Adenoidectomy, Orthopedic Surgery, Tonsillectomy Additional Past Surgical History / Comment(s): stone removal from salivary gland, oral surgery Past Anesthesia/Blood Transfusion Reactions: Motion Sickness, Postoperative Nausea & Vomiting (PONV) Additional Past Anesthesia/Blood Transfusion Reaction / Comment(s): never had blood transfusion Past Psychological History: No Psychological Hx Reported Smoking Status: Never smoker Past Alcohol Use History: Occasional Past Drug Use History: Marijuana - Past Family History Father Family Medical History: Diabetes Mellitus, Hyperlipidemia, Hypertension Additional Family Medical History / Comment(s): CABG Mother Family Medical History: Hyperlipidemia, Hypertension General Exam Limitations: no limitations General appearance: alert, in no apparent distress Head exam: Present: atraumatic, normocephalic, normal inspection Respiratory exam: Present: normal lung sounds bilaterally. Absent: respiratory distress, wheezes, rales, rhonchi, stridor Cardiovascular Exam: Present: regular rate, normal rhythm, normal heart sounds. Absent: systolic murmur, diastolic murmur, rubs, gallop, clicks GI/Abdominal exam: Present: soft, hyperactive bowel sounds. Absent: distended, tenderness Neurological exam: Present: alert, oriented X3, CN II-XII intact Psychiatric exam: Present: normal affect, normal mood Skin exam: Present: warm, dry, intact, normal color. Absent: rash Course Vital Signs 08/18/22 08/18/22 07:20 11:52 Temperature 97.7 F 97.7 F Pulse Rate 113 H 87 Respiratory 16 18 Rate Blood Pressure 133/91 128/67 O2 Sat by Pulse 99 98 Oximetry Medical Decision Making - Medical Decision Making This is a 37-year-old female who presents to the emergency department for nausea, vomiting, diarrhea. Was pt. sent in by a medical professional or institution? @ -No Did you speak to anyone other than the patient for history? @ -No Did you review nursing and triage notes? @ -Yes, and I agree, it is accurate with regards to the patient's symptoms. Were old charts reviewed? @ -No Differential Diagnosis? @ -Differential Nausea and Vomiting: Gastroenteritis, cholecystitis, appendicitis, pancreatitis, migraine, benign positional vertigo, food borne illness, pyelonephritis, irritable bowel syndrome, influenza, Covid, GERD, incarcerated hernia, intestinal obstruction, this is not meant to be an all-inclusive list. EKG interpreted by me (3pts min.)? @ -Not obtained X-rays interpreted by me (1pt min.)? @ -Not obtained CT interpreted by me (1pt min.)? @ -Not obtained U/S interpreted by me (1pt. min.)? @ -Not obtained What testing was considered but not performed? (CT, X-rays, U/S, labs)? Why? @ -None What meds were considered but not given? Why? @ -None Did you discuss the management of the patient with other professionals? @ -No Did you reconcile home meds? @ -No Was smoking cessation discussed for >3mins.? @ -No Was critical care preformed (if so, how long)? @ -No Were there social determinants of health that impacted care today? How? (Homelessness, low income, unemployed, alcoholism, drug addiction, transp ortation, low edu. Level, literacy, decrease access to med. care, assisted, rehab)? @ -No Was there de-escalation of care discussed even if they declined? (Discuss DNR or withdrawal of care, Hospice)? @ -No What co-morbidities impacted this encounter? (DM, HTN, Smoking, COPD, CAD, Cancer, CVA, Hep., AIDS, mental health diagnosis, sleep apnea, morbid obesity)? @ -None Was patient admitted / discharged? @ -Discharged. Lab work obtained and found to be nonactionable. She was initially given IV fluids, Zofran, and Pepcid, however she continued to have minor associated nausea. She was subsequently given a dose of Reglan, which effectively managed her symptoms. She was able to drink water and eat crackers without any problems. Prescription for Reglan and Zofran provided with dosing instructions reviewed. Advised that she can alternate with the medications if one of them is not effectively managing her symptoms. Prescription for Lomotil provided as well for her concerns with regards to the diarrhea. Advised that this may make her drowsy and she should avoid driving or operating machinery when taking this. Otherwise advised she slowly advance her diet as tolerated and remain well-hydrated. Undiagnosed new problem with uncertain prognosis? @ -None Drug Therapy requiring intensive monitoring for toxicity (Heparin, Nitro, Insulin, Cardizem)? @ -None Were any procedures done? @ -None Diagnosis/symptom? @ -Gastroenteritis Acute, or Chronic, or Acute on Chronic? @ -Acute Uncomplicated (without systemic symptoms) or Complicated (systemic symptoms)? @ -Uncomplicated Side effects of treatment? @ -None Exacerbation, Progression, or Severe Exacerbation] @ -Not applicable Poses a threat to life or bodily function? @ -No Return precautions reviewed in depth, the patient is instructed to return to the emergency department with any new, worsening, or concerning symptoms. Patient verbalized understanding. This case was discussed in detail with the attending ED physician, Dr. Watson. Presentation, findings, and treatment plan discussed in detail as well. - Lab Data Result diagrams: 08/18/22 08:00 08/18/22 08:00 Lab Results 08/18/22 08/18/22 08/18/22 Range/Units 08:00 08:00 08:00 WBC 4.9 (3.8-10.6) k/uL RBC 5.11 (3.80-5.40) m/uL Hgb 15.8 (11.4-16.0) gm/dL Hct 47.6 H (34.0-46.0) % MCV 93.3 (80.0-100.0) fL MCH 31.0 (25.0-35.0) pg MCHC 33.3 (31.0-37.0) g/dL RDW 12.2 (11.5-15.5) % Plt Count 245 (150-450) k/uL MPV 8.1 Neutrophils % 70 % Lymphocytes % 16 % Monocytes % 10 % Eosinophils % 1 % Basophils % 0 % Neutrophils # 3.4 (1.3-7.7) k/uL Lymphocytes # 0.8 L (1.0-4.8) k/uL Monocytes # 0.5 (0-1.0) k/uL Eosinophils # 0.1 (0-0.7) k/uL Basophils # 0.0 (0-0.2) k/uL Sodium 138 (137-145) mmol/L Potassium 4.0 (3.5-5.1) mmol/L Chloride 106 (98-107) mmol/L Carbon Dioxide 21 L (22-30) mmol/L Anion Gap 11 mmol/L BUN 12 (7-17) mg/dL Creatinine 0.71 (0.52-1.04) mg/dL Est GFR (CKD-EPI)AfAm >90 (>60 ml/min/1.73 sqM) Est GFR (CKD-EPI)NonAf >90 (>60 ml/min/1.73 sqM) Glucose 94 (74-99) mg/dL Calcium 8.9 (8.4-10.2) mg/dL Total Bilirubin 0.7 (0.2-1.3) mg/dL AST 53 H (14-36) U/L ALT 62 H (4-34) U/L Alkaline Phosphatase 55 (38-126) U/L Total Protein 7.4 (6.3-8.2) g/dL Albumin 4.5 (3.5-5.0) g/dL Amylase 43 (30-110) U/L Lipase 49 (23-300) U/L TSH 5.240 H (0.465-4.680) mIU/L Free T4 1.31 (0.78-2.19) ng/dL Urine Color Yellow Urine Appearance Cloudy H (Clear) Urine pH 6.0 (5.0-8.0) Ur Specific [place] 1.032 (1.001-1.035) Urine Protein 1+ H (Negative) Urine Glucose (UA) Negative (Negative) Urine Ketones 1+ H (Negative) Urine Blood Large H (Negative) Urine Nitrite Negative (Negative) Urine Bilirubin Negative (Negative) Urine Urobilinogen <2.0 (<2.0) mg/dL Ur Leukocyte Esterase Small H (Negative) Urine RBC 3 (0-5) /hpf Urine WBC 17 H (0-5) /hpf Ur Squamous Epith Cells 6 H (0-4) /hpf Urine Bacteria Few H (None) /hpf Urine Mucus Many H (None) /hpf Urine HCG, Qual (Not Detectd) Urine Opiates Screen (NotDetected) Ur Oxycodone Screen (NotDetected) Urine Methadone Screen (NotDetected) Ur Propoxyphene Screen (NotDetected) Ur Barbiturates Screen (NotDetected) U Tricyclic Antidepress (NotDetected) Ur Phencyclidine Scrn (NotDetected) Ur Amphetamines Screen (NotDetected) U Methamphetamines Scrn (NotDetected) U Benzodiazepines Scrn (NotDetected) Urine Cocaine Screen (NotDetected) U Marijuana (THC) Screen (NotDetected) 08/18/22 08/18/22 Range/Units 08:00 08:00 WBC (3.8-10.6) k/uL RBC (3.80-5.40) m/uL Hgb (11.4-16.0) gm/dL Hct (34.0-46.0) % MCV (80.0-100.0) fL MCH (25.0-35.0) pg MCHC (31.0-37.0) g/dL RDW (11.5-15.5) % Plt Count (150-450) k/uL MPV Neutrophils % % Lymphocytes % % Monocytes % % Eosinophils % % Basophils % % Neutrophils # (1.3-7.7) k/uL Lymphocytes # (1.0-4.8) k/uL Monocytes # (0-1.0) k/uL Eosinophils # (0-0.7) k/uL Basophils # (0-0.2) k/uL Sodium (137-145) mmol/L Potassium (3.5-5.1) mmol/L Chloride (98-107) mmol/L Carbon Dioxide (22-30) mmol/L Anion Gap mmol/L BUN (7-17) mg/dL Creatinine (0.52-1.04) mg/dL Est GFR (CKD-EPI)AfAm (>60 ml/min/1.73 sqM) Est GFR (CKD-EPI)NonAf (>60 ml/min/1.73 sqM) Glucose (74-99) mg/dL Calcium (8.4-10.2) mg/dL Total Bilirubin (0.2-1.3) mg/dL AST (14-36) U/L ALT (4-34) U/L Alkaline Phosphatase (38-126) U/L Total Protein (6.3-8.2) g/dL Albumin (3.5-5.0) g/dL Amylase (30-110) U/L Lipase (23-300) U/L TSH (0.465-4.680) mIU/L Free T4 (0.78-2.19) ng/dL Urine Color Urine Appearance (Clear) Urine pH (5.0-8.0) Ur Specific [place] (1.001-1.035) Urine Protein (Negative) Urine Glucose (UA) (Negative) Urine Ketones (Negative) Urine Blood (Negative) Urine Nitrite (Negative) Urine Bilirubin (Negative) Urine Urobilinogen (<2.0) mg/dL Ur Leukocyte Esterase (Negative) Urine RBC (0-5) /hpf Urine WBC (0-5) /hpf Ur Squamous Epith Cells (0-4) /hpf Urine Bacteria (None) /hpf Urine Mucus (None) /hpf Urine HCG, Qual Not Detected (Not Detectd) Urine Opiates Screen Not Detected (NotDetected) Ur Oxycodone Screen Not Detected (NotDetected) Urine Methadone Screen Not Detected (NotDetected) Ur Propoxyphene Screen Not Detected (NotDetected) Ur Barbiturates Screen Not Detected (NotDetected) U Tricyclic Antidepress Not Detected (NotDetected) Ur Phencyclidine Scrn Not Detected (NotDetected) Ur Amphetamines Screen Not Detected (NotDetected) U Methamphetamines Scrn Not Detected (NotDetected) U Benzodiazepines Scrn Not Detected (NotDetected) Urine Cocaine Screen Not Detected (NotDetected) U Marijuana (THC) Screen Not Detected (NotDetected) Disposition Clinical Impression: Gastroenteritis Disposition: HOME SELF-CARE Instructions (If sedation given, give patient instructions): Acute Nausea and Vomiting (ED), Acute Diarrhea (ED) Additional Instructions: Return to the emergency department with any new, worsening, or concerning symptoms. You can alternate with the Reglan and Zofran if needed for nausea and vomiting. You can take the Lomotil up to 4 times daily for management of the diarrhea. Slowly advance your diet as tolerated and remain well-hydrated. Follow up with your primary care provider in 1-2 days. Prescriptions: Diphenox-Atrop 2.5-0.025 mg [Lomotil] 1 - 2 tab PO QID PRN 3 Days #24 tab PRN Reason: Diarrhea Metoclopramide [Reglan] 10 mg PO Q6H PRN #20 tab PRN Reason: Nausea And Vomiting Ondansetron Odt [Zofran Odt] 4 mg PO Q8HR PRN #20 tab PRN Reason: Nausea And Vomiting Is patient prescribed a controlled substance at d/c from ED?: Yes When asked, does pt state using other controlled substances?: Yes If prescribed controlled substance>3 days was MAPS reviewed?: Prescribed <3 Days Referrals: Edwardo Shields DO [Primary Care Provider] - 1-2 days
[2022-08-18 08:30] LABS: Basophils % (A) 0 %; Eosinophils # (A) 0.1 k/uL (0-0.7); Eosinophils % (A) 1 %; HCT 47.6 % (34.0-46.0); HGB 15.8 gm/dL (11.4-16.0); Lymphocytes # (A) 0.8 k/uL (1.0-4.8); Lymphocytes % (A) 16 %; MCHC 33.3 g/dL (31.0-37.0); MCV 93.3 fL (80.0-100.0); Mean Platelet Volume 8.1; Monocytes # (A) 0.5 k/uL (0-1.0); Monocytes % (A) 10 %; Neutrophils # (A) 3.4 k/uL (1.3-7.7); Neutrophils % (A) 70 %; Platelet Count 245 k/uL (150-450); RBC 5.11 m/uL (3.80-5.40); RDW 12.2 % (11.5-15.5); WBC 4.9 k/uL (3.8-10.6)
[2022-08-18 08:37] LABS: ALT 62 U/L (4-34); African American GFR (CKD) >90 (>60 ml/min/1.73 sqM); Albumin 4.5 g/dL (3.5-5.0); Amylase 43 U/L (30-110); Anion Gap 11 mmol/L; Blood Urea Nitrogen 12 mg/dL (7-17); Calcium 8.9 mg/dL (8.4-10.2); Carbon Dioxide 21 mmol/L (22-30); Chloride 106 mmol/L (98-107); Glucose 94 mg/dL (74-99); Lipase 49 U/L (23-300); Non-African American GFR(CKD) >90 (>60 ml/min/1.73 sqM); Sodium 138 mmol/L (137-145); Total Bilirubin 0.7 mg/dL (0.2-1.3); Total Protein 7.4 g/dL (6.3-8.2)
[2022-08-18 08:45] LABS: AST 53 U/L (14-36); Alkaline Phosphatase 55 U/L (38-126)
[2022-08-18 08:58] LABS: Amphetamine Screen,Urine Not Detected (NotDetected); Barbiturate Screen,Urine Not Detected (NotDetected); Benzodiazepines Screen,Urine Not Detected (NotDetected); Cocaine Screen,Urine Not Detected (NotDetected); Methadone Screen, Urine Not Detected (NotDetected); Opiate Screen,Urine Not Detected (NotDetected); Oxycodone Screen, Urine Not Detected (NotDetected); Phencyclidine Screen,Urine Not Detected (NotDetected); Tricyclic Antidepressant,Urine Not Detected (NotDetected); Urn Cannabinoid Scrn Not Detected (NotDetected)
[2022-08-18 09:16] LABS: Appearance,Urine Cloudy (Clear); Bacteria,Urine Few /hpf; Bilirubin,Urine Negative (Negative); Blood,Urine Large (Negative); Color,Urine Yellow; Glucose,Urine (UA) Negative (Negative); Ketones,Urine 1+ (Negative); Leukocyte Esterase,Urine Small (Negative); Mucus,Urine Many /hpf; Nitrite,Urine Negative (Negative); Protein,Urine 1+ (Negative); RBC,Urine 3 /hpf (0-5); Specific Gravity,Urine 1.032 (1.001-1.035); Squamous Epithelial Cell,Urine 6 /hpf (0-4); Urobilinogen,Urine <2.0 mg/dL (<2.0); WBC,Urine 17 /hpf (0-5)
[2022-08-18] MEDS ORDERED: METOCLOPRAMIDE 5 MG/ML 2 ML VIAL IVP STA (09:38)
[2022-08-18 09:58] LABS: T4, Free (Free Thyroxine) 1.31 ng/dL (0.78-2.19)
[2022-08-18 11:53] VITALS: BP 128/67; PULSE 87; RESP 18
== END 2022-08-18 11:53 | disposition home or self-care (01) ==
LOC: EC 07:16
DX: K52.9 Noninfective gastroenteritis and colitis, unspecified (principal); F12.90 Cannabis use, unspecified, uncomplicated; Z88.2 Allergy status to sulfonamides
CPT/HCPCS: 36415; 84439; 80053; 84443; 82150; 83690; 85025; 81001; 81025; 80306; 99284; 96374; 96375 ×2; 96361 ×2; J2765; J2405

== ENCOUNTER → 2022-08-20 | Outpatient (CLI) | payer MEDICAID ==
--- NOTE | 2022-08-20 10:58 | CT ---
EXAMINATION TYPE: CT abdomen wo con DATE OF EXAM: 08/20/2022 COMPARISON: 06/29/2017 HISTORY: 37-year-old female abdominal pain, vomiting, bloating CT DLP: 270.9 mGycm Automated exposure control for dose reduction was used. TECHNIQUE: Helical acquisition of images was performed from the lung bases through the top of iliac crest to include entire abdomen without IV contrast. Coronal and sagittal reconstructions performed. FINDINGS: LUNG BASES: No significant abnormality is appreciated. LIVER/GB: Gallbladder likely surgically absent. Otherwise, no significant abnormality is appreciated. PANCREAS: No significant abnormality is seen. SPLEEN: No significant abnormality is seen. ADRENALS: No significant abnormality is seen. KIDNEYS: No significant abnormality is seen. BOWEL: A few prominent fluid-filled mid abdominal small bowel loops with possible mild fold thickenin g, axial image 33 and coronal image 38. Partially visualized normal appendix. There is mild stool bur den. No pericolonic inflammatory change. LYMPH NODES: Numerous scattered nonenlarged mesenteric nodes measuring up to 5 mm. OTHER: No significant abnormality is seen. PELVIS: Not imaged. BONES: Mild facet arthropathy lower lumbar spine. IMPRESSION: SOME PROMINENT FLUID FILLED MID ABDOMINAL SMALL BOWEL LOOPS MAY HAVE SOME MILD FOLD THICKENING WEL L. CONSIDER A MILD REGIONAL ILEUS OR ENTERITIS. Otherwise, no acute inflammatory process identified i n the abdomen to explain the patient's symptoms.
== END | disposition home or self-care (01) ==
LOC: RADCTMAIN 10:20
PROVIDERS: ATTEND Family Medicine
DX: K63.89 Other specified diseases of intestine (principal); R11.2 Nausea with vomiting, unspecified; R14.0 Abdominal distension (gaseous)
CPT/HCPCS: 74150

== ENCOUNTER → 2022-11-28 | Outpatient (CLI) | payer MEDICAID ==
--- NOTE | 2022-12-04 00:44 | HM ---
HOLTER MONITOR REPORT STUDY PERFORMED: A 48-hour Holter. INDICATION: Palpitations. FINDINGS: Underlying rhythm is sinus with an average heart rate of 90 beats per minute. Heart rate varied from 50 beats per minute to 150 beats per minute. No significant tachy or bradyarrhythmias have been noted. CONCLUSIONS: A 48-hour Holter reveals sinus rhythm with episodes of sinus tachycardia. MMODL / IJN: [id number] /
== END | disposition home or self-care (01) ==
LOC: RADECHMAIN 07:49
PROVIDERS: ATTEND Family Medicine
DX: R00.2 Palpitations (principal); R00.0 Tachycardia, unspecified
CPT/HCPCS: 93225; 93226